=== PATIENT | male | born 1985 | race American Indian/Alaskan Native ===

== ENCOUNTER 2020-07-17 22:25 | Emergency (ER) | payer MEDICAID, SELFPAY ==
[2020-07-17 22:40] VITALS: BP 123/71; PULSE 100; RESP 17; TEMP 36.9; O2SAT 96; BMI 41.8
--- NOTE | 2020-07-17 22:44 | XR_ITS ---
EXAMINATION: XR SHOULDER, LEFT CLINICAL INFORMATION: Left shoulder pain status post work/lifting COMPARISON: None TECHNIQUE: Three views of the left shoulder. FINDINGS: No fracture or dislocation. The glenohumeral joint is well aligned. The joint space is maintained. The acromioclavicular joint is intact. The visualized lung is clear. The visualized ribs are intact. XR/XR shoulder LT min 2V IMPRESSION: No fracture or malalignment.
--- NOTE | 2020-07-17 22:46 | ED.UPPEXIN ---
HPI - Extremity Injury (Upper) General Chief Complaint: Extremity Injury, Upper Stated Complaint: SHOULDER PAIN Time Seen by Provider: 07/17/20 22:32 Source: patient Mode of arrival: ambulatory History of Present Illness HPI narrative: 34-year-old male with no significant past medical history presented to ED complaining of left shoulder pain x1 week. Reports believed injured shoulder at work and at home during lifting, denies direct trauma / falls or injury. Reports pain worse with movement. Denies numbness, tingling, weakness, CP/SOB MD complaint: injury to: left and shoulder Related Data Previous Rx's Medication Instructions Recorded acetaminophen [Tylenol Extra 500 mg PO Q6H PRN #20 tab 07/17/20 Strength] cyclobenzaprine 5 mg PO Q8H PRN 5 Days #14 tab 07/17/20 lidocaine [Lidoderm] 1 patch TOPICAL DAILY PRN #30 ea 07/17/20 MDD remove after 12 hours naproxen 500 mg PO BID PRN 10 Days #20 tab 07/17/20 Allergies Allergy/AdvReac Type Severity Reaction Status Date / Time No Known Allergies Allergy Verified 07/17/20 22:49 [No Known Allergies*] Review of Systems Review of Systems: Constitutional: No Fever, No Chills Cardiovascular: No Chest Pain Respiratory: No SO Musculoskeletal: + joint pain, No Myalgias, No Joint Swelling Skin: No Skin Lesions, No rash Neuro: No Weakness, No Numbness, No Paresthesias Yes all other systems are reviewed and are negative [facility] Past Medical History Attestation statement: The following information was validated with the patient. Medical History (Updated 07/17/20 @ 22:53 by AIDAN Lala) No known health problems Surgical History (Updated 07/17/20 @ 22:45 by Nessa Luna) H/O left knee surgery Social History Social History Alcohol intake: current Alcohol intake frequency: holidays/special occasions only Alcohol type: beer Smoking Status: Never smoker Use of substances other than those prescribed or required for medical reasons: No Advance Directives: No Physical Exam Vital Signs: Vital Signs: Vital Signs Temp Pulse Resp BP Pulse Ox 07/17/20 23:27 98.5 F 98 18 118/72 96 07/17/20 22:40 98.4 F 100 17 123/71 96 Body Mass Index 41.8 Const: General: cooperative and healthy appearing Orientation/consciousness: patient oriented x3 Limitations: no limitations HENMT: Head: Yes normal to inspection Ears: hearing grossly normal bilaterally General nose exam: Normal external nose present Face and sinus: Yes normal facial exam Eyes: General: appearance normal, both eyes and all related structures EOM: EOMs intact bilaterally Neck: Neck: Yes normal visual inspection Resp: Effort & Inspection: normal respiratory effort Cardio: Peripheral pulses: radial pulses present Skin: Rashes: no rashes Wounds: no wounds Neuro: General: patient oriented x3 Gait exam (Neuro): Normal gait present Extrem: General: Yes normal to inspection Left upper extremity: shoulder/upper arm Details: tenderness (anterior aspect shoulder) and abnormal ROM (decreased internal rotation/abduction 2/2 pain) Details: pain with active ROM; no crepitus Course Course Course Narrative: - CXR unremarkable MDM - Extremity Injury (Upper) MDM Narrative Medical decision making narrative: likely ligamental/tendon injury/ MSK pain. Low concern for fracture /dislocation plan: X-rays Discharge Plan Discharge Clinical Impression: Acute shoulder pain Qualifiers: Laterality: left Qualified Code(s): M25.512 - Pain in left shoulder Patient Disposition: Home, Self-Care Additional Instructions: your x-ray was unremarkable today in the ED Your pain is likely musculoskeletal, ligamental or tendon Flexeril is a muscle relaxer, take at night as it makes you drowsy, do not drive, drink alcohol, or operate machinery while taking it Naproxen as an anti-inflammatory / pain medication, take with food Lidoderm patches are numbing patches, apply to painful area In addition take Tylenol at home If symptoms persist or worsen, pain becomes unbearable, you developed urinary retention or incontinence, or weakness return to the ED Prescriptions: New acetaminophen [Tylenol Extra Strength] 500 mg tablet 500 mg PO Q6H PRN (Reason: pain or fever) Qty: 20 RF: 0 lidocaine [Lidoderm] 5 % adhesive patch,medicated 1 patch topical DAILY MDD remove after 12 hours PRN (Reason: pain) Qty: 30 RF: 0 naproxen 500 mg tablet 500 mg PO BID PRN (Reason: pain) 10 Days Qty: 20 RF: 0 cyclobenzaprine 5 mg tablet 5 mg PO Q8H PRN (Reason: pain (scale score 7-10)) 5 Days Qty: 14 RF: 0 Referrals: Reena Sanabria MD [Physician] - 1 week ( as needed) Physician,None [Primary Care Provider] - 5 days ( your primary care doctor) Stand Alone Forms: Work/School Release Print Language: Guatemalan
[2020-07-17 23:27] VITALS: BP 118/72; PULSE 98; RESP 18; TEMP 36.9; O2SAT 96
== END 2020-07-17 23:56 | disposition home or self-care (01) ==
PROVIDERS: Emergency Provider Internal Medicine
DX: M25.512 Pain in left shoulder (principal); Z79.899 Other long term (current) drug therapy
CPT/HCPCS: 73030; 99283; 99284

== ENCOUNTER 2021-05-01 20:40 | Emergency (ER) | payer MEDICAID, SELFPAY ==
[2021-05-01 20:54] VITALS: BP 141/88; PULSE 105; RESP 18; TEMP 36.7; O2SAT 97; BMI 44.6
--- NOTE | 2021-05-01 21:49 | ED.BACK ---
HPI - Back Pain/Injury General Chief Complaint: Back Pain/Injury Stated Complaint: Back pain Time Seen by Provider: 05/01/21 20:54 Source: patient Mode of arrival: ambulatory History of Present Illness HPI Narrative: 35-year-old male presenting to the ED complaining of acute on chronic mid/low back pain radiating down right lower extremity x a long-time. Denies new or recent trauma/fall or injury. Denies numbness, tingling, weakness, urinary incontinence/retention, fecal incontinence, fever, chills MD elicited complaint: back pain Related Data Previous Rx's Medication Instructions Recorded acetaminophen 500 mg tablet 500 mg PO Q6H PRN #20 tab 07/17/20 (Tylenol Extra Strength) cyclobenzaprine 5 mg tablet 5 mg PO Q8H PRN 5 Days #14 tab 07/17/20 lidocaine 5 % topical patch 1 patch TOPICAL DAILY PRN #30 ea 07/17/20 (Lidoderm) MDD remove after 12 hours naproxen 500 mg tablet 500 mg PO BID PRN 10 Days #20 tab 07/17/20 acetaminophen 500 mg tablet 500 mg PO Q6H PRN #20 tab 05/01/21 (Tylenol Extra Strength) cyclobenzaprine 5 mg tablet 5 mg PO Q8H PRN 5 Days #14 tab 05/01/21 lidocaine 5 % topical patch 1 patch TOPICAL DAILY PRN #30 ea 05/01/21 (Lidoderm) MDD remove after 12 hours naproxen 500 mg tablet 500 mg PO BID PRN 10 Days #20 tab 05/01/21 Allergies Allergy/AdvReac Type Severity Reaction Status Date / Time No Known Allergies Allergy Verified 07/17/20 22:49 [No Known Allergies*] Review of Systems Review of Systems: Constitutional: No Fever, No Chills Cardiovascular: No Chest Pain, No SOB Gastrointestinal: No Nausea, No Vomiting, No Abdominal pain Genitourinary: No Urinary Incontinence/retention Musculoskeletal: + joint pain, No Myalgias, No Joint Swelling Skin: No Skin Lesions, No rash Neuro: No Weakness, No Numbness, No Paresthesias Yes all other systems are reviewed and are negative Neurologic: Denies Sensory deficit (Neuro) PMFSH Past Medical History Attestation statement: The following information was validated with the patient. Medical History (Updated 05/01/21 @ 21:55 by AIDAN Lala) No known health problems Surgical History (Updated 07/17/20 @ 22:45 by Nessa Luna) H/O left knee surgery Social History Social History Alcohol intake: current Alcohol intake frequency: holidays/special occasions only Alcohol type: beer Advance Directives: No Advance Directives Information Provided: No Physical Exam Vital Signs: Vital Signs: Last Vital Signs Temp 98.1 F 05/01/21 20:54 Pulse 105 H 05/01/21 20:54 Resp 18 05/01/21 20:54 BP 141/88 H 05/01/21 20:54 Pulse Ox 97 05/01/21 20:54 Body Mass Index 44.6 Const: General: cooperative and healthy appearing Orientation/consciousness: patient oriented x3 Limitations: no limitations HENMT: Head: Yes normal to inspection Ears: hearing grossly normal bilaterally General nose exam: Normal external nose present Face and sinus: Yes normal facial exam Eyes: General: appearance normal, both eyes and all related structures EOM: EOMs intact bilaterally Neck: Neck: Yes normal visual inspection Resp: Effort & Inspection: normal respiratory effort and no respiratory distress Cardio: Rate: regular rate GI: Inspection: Yes normal to inspection Palpation (GI): Soft to palpation, nontender, no guarding and not rigid Back/Spine/Pelvis: Other: No midline cervical/thoracic or lumbar spinous tenderness. + right-sided paraspinal/MSK tenderness to palpation and right-sided MSK lumbar tenderness to palpation Skin: Rashes: no rashes Wounds: no wounds Neuro: Other: No saddle anesthesia. Strength intact throughout General: patient oriented x3, gait normal, tone normal and moves all extremities Gait exam (Neuro): Normal gait present Motor exam (neuro): 5/5 motor strength present throughout Sensory Exam: No Sensory deficit (Neuro) Extrem: General: Yes normal to inspection MDM - Back Pain/Injury MDM Narrative Medical decision making narrative: 35-year-old male presenting to the ED complaining of acute on chronic mid/low back pain radiating down right lower extremity x a long-time. On exam mildly tachycardic likely from paim, no midline spinous tenderness throughout, no red flag symptoms, no saddle anesthesia. Likely MSK pain. Low concern for cauda equina/cord compression Discharge Plan Discharge Clinical Impression: Thoracic back pain, Lumbar radiculopathy Patient Disposition: Home, Self-Care Instructions: Back Pain (ED) Additional Instructions: Your pain is likely musculoskeletal Flexeril is a muscle relaxer, take at night as it makes you drowsy, do not drive, drink alcohol, or operate machinery while taking it Naproxen as an anti-inflammatory / pain medication, take with food Lidoderm patches are numbing patches, apply to painful area In addition take Tylenol at home If symptoms persist or worsen, pain becomes unbearable, you developed urinary retention or incontinence, or weakness return to the ED Prescriptions: New acetaminophen [Tylenol Extra Strength] 500 mg tablet 500 mg PO Q6H PRN (Reason: pain or fever) Qty: 20 RF: 0 lidocaine [Lidoderm] 5 % adhesive patch,medicated 1 patch topical DAILY MDD remove after 12 hours PRN (Reason: pain) Qty: 30 RF: 0 naproxen 500 mg tablet 500 mg PO BID PRN (Reason: pain) 10 Days Qty: 20 RF: 0 cyclobenzaprine 5 mg tablet 5 mg PO Q8H PRN (Reason: pain (scale score 7-10)) 5 Days Qty: 14 RF: 0 No Action acetaminophen [Tylenol Extra Strength] 500 mg tablet 500 mg PO Q6H PRN (Reason: pain or fever) Qty: 20 RF: 0 lidocaine [Lidoderm] 5 % adhesive patch,medicated 1 patch topical DAILY MDD remove after 12 hours PRN (Reason: pain) Qty: 30 RF: 0 naproxen 500 mg tablet 500 mg PO BID PRN (Reason: pain) 10 Days Qty: 20 RF: 0 cyclobenzaprine 5 mg tablet 5 mg PO Q8H PRN (Reason: pain (scale score 7-10)) 5 Days Qty: 14 RF: 0 Referrals: Physician,None [Primary Care Provider] - 2 days Stand Alone Forms: Work/School Release
== END 2021-05-01 22:29 | disposition home or self-care (01) ==
PROVIDERS: Emergency Provider Student in an Organized Health Care Education/Training Program
DX: M54.16 Radiculopathy, lumbar region (principal); M54.6 Pain in thoracic spine
CPT/HCPCS: 99283

== ENCOUNTER 2021-10-30 11:06 | Emergency (ER) | payer MEDICAID, SELFPAY ==
[2021-10-30 11:24] VITALS: BP 131/80; PULSE 88; RESP 16; TEMP 36.6; O2SAT 97; BMI 41.8
[2021-10-30 11:41] LABS: MANUAL DIFF FLAG NO
[2021-10-30 11:42] LABS: Basophils Percent Auto 0.3 % (0-2); Eosinophils Absolute Auto 0.1 X10*3/uL (0.0-0.4); Hematocrit 44.5 % (42.0-52.0); Imm Gran Abs Auto 0.08 X10*3/uL (0.00-0.03); Imm Gran Pct Auto 0.8 % (0.0-0.4); Lymphocytes Absolute Auto 2.7 X10*3/uL (1.2-4.9); Mean Corpuscular HGB Conc 33.7 g/dl (31.0-36.0); Mean Corpuscular Hemoglobin 29.9 pg (27.0-33.0); Mean Corpuscular Volume 88.6 fL (80.0-98.0); Mean Platelet Volume 8.9 fL (9.4-12.4); Monocytes Absolute Auto 0.7 X10*3/uL (0.1-1.2); Monocytes Percent Auto 6.4 % (2-11); Neutrophils Percent Auto 66.5 % (45-73); Platelet Count 271 X10*3/uL (160-400); Red Blood Count 5.02 X10*6/uL (4.60-5.80); Red Cell Distribution Width 12.1 % (11.0-16.0); White Blood Count 10.6 X10*3/uL (4.8-10.8)
[2021-10-30 11:58] LABS: Alanine Aminotransferase 28 U/L (0-40); Albumin Level 4.1 g/dL (3.5-5.0); Alkaline Phosphatase 76 U/L (39-117); Anion Gap 10 (12-20); Aspartate Amino Transferase 20 U/L (5-37); Bilirubin Total 0.4 mg/dL (0.0-1.0); Blood Urea Nitrogen 9 mg/dL (9-16); Calcium 9.6 mg/dL (8.4-10.2); Carbon Dioxide 29 mmol/L (22-29); Chloride 101 mmol/L (96-108); Creatinine Clr Calc Pharmacy 185.6; Estimated Glomerular Filt Rate > 60; Glucose Random 227 mg/dL (60-115); Potassium 4.3 mmol/L (3.3-5.1); Sodium 136 mmol/L (135-145); Total Protein 7.4 g/dL (6.5-8.0)
[2021-10-30 12:01] LABS: Appearance Urine CLEAR; Color Urine YELLOW; Glucose Urine UA NEG (NEG); Leukocyte Esterase Urine NEG (NEG); Nitrite Urine NEG (NEG); Specific Gravity - Urine 1.025 (1.005-1.025); UACC Culture Trigger NO; Urine Blood TRACE (NEG); Urine Ketones NEG (NEG); Urine Protein NEG (NEG-TRACE)
[2021-10-30 12:20] LABS: Bacteria Urine TRACE /LPF; Mucus Urine 2+ /LPF; Squamous Epithelial Cell Urine 1+ /LPF
--- NOTE | 2021-10-30 14:09 | ED_ITS ---
HPI - Abdominal Pain General Chief Complaint: Abdominal Pain Stated Complaint: ABD PAIN Time Seen by Provider: 10/30/21 12:39 Source: patient Mode of arrival: ambulatory Limitations: no limitations History of Present Illness HPI narrative: Patient comes to the emergency room complaining of abdominal cramping and di arrhea since yesterday. Patient denies fever chills, no significant abdominal pain, no vomiting. Patient states that his has the same symptoms. Patient has no URI symptoms either. Patient states in the last 24 hours he has had 6-8 bowel movements with diarrhea. Patient has not taking any medication for diarrhea. Related Data Previous Rx's Medication Instructions Recorded acetaminophen 500 mg tablet 500 mg PO Q6H PRN #20 tab 07/17/20 (Tylenol Extra Strength) cyclobenzaprine 5 mg tablet 5 mg PO Q8H PRN 5 Days #14 tab 07/17/20 lidocaine 5 % topical patch 1 patch TOPICAL DAILY PRN #30 ea 07/17/20 (Lidoderm) MDD remove after 12 hours naproxen 500 mg tablet 500 mg PO BID PRN 10 Days #20 tab 07/17/20 acetaminophen 500 mg tablet 500 mg PO Q6H PRN #20 tab 05/01/21 (Tylenol Extra Strength) cyclobenzaprine 5 mg tablet 5 mg PO Q8H PRN 5 Days #14 tab 05/01/21 lidocaine 5 % topical patch 1 patch TOPICAL DAILY PRN #30 ea 05/01/21 (Lidoderm) MDD remove after 12 hours naproxen 500 mg tablet 500 mg PO BID PRN 10 Days #20 tab 05/01/21 loperamide 2 mg tablet 2 mg PO Q4H PRN #14 tab 10/30/21 Allergies Allergy/AdvReac Type Severity Reaction Status Date / Time No Known Allergies Allergy Verified 07/17/20 22:49 [No Known Allergies*] Review of Systems Review of Systems Constitutional : No Weight loss, No Fever, No Chills, No Night Sweats, No Fatigue, No Malaise ENT/Mouth : No Hearing loss, No Ear Pain, No Nasal Congestion, No Sinus Pain, No Hoarseness, No sore throat, No Rhinorrhea, No Swallowing Difficulty Eyes: No Eye Pain, No Swelling, No Redness, No Foreign Body, No Discharge, No Vision Changes Cardiovascular : No Chest Pain, No SOB, No Dyspnea on Exertion, No Orthopnea, No Edema, No Palpitations Respiratory : No Cough, No Sputum, No Wheezing, No Smoke Exposure, No Dyspnea Gastrointestinal : No nausea or vomiting, complaining of diarrhea, no constipation, complaining of mild abdominal cramping , no abdominal pain Genitourinary : no irregular bleeding, No Dysuria, No Urinary Frequency, No Hematuria, No Urinary Incontinence, No Urgency, No Flank Pain, No Urinary Flow Changes, No Hesitancy Musculoskeletal : No joint pain, No Myalgias, No Joint Swelling Skin : No Skin Lesions, No rash Neuro : No Weakness, No Numbness, No Paresthesias, No Loss of Consciousness, No Dizziness, No Headache Psych : No Anxiety/Panic, No Depression, No SI/HI/AH/VH, No Social Issues, Heme/Lymph: No Bruising, No Bleeding,No Lymphadenopathy Endocrine : No Polyuria, No Polydipsia, No Temperature Intolerance [facility] Past Medical History Medical History No known health problems Surgical History H/O left knee surgery Social History Social History Alcohol intake: current Alcohol intake frequency: holidays/special occasions only Alcohol type: beer Physical Exam ED Vital Signs: Vital Signs - 24 hr 10/30/21 11:24 Temperature 97.8 F Pulse Rate 88 Respiratory Rate 16 Blood Pressure 131/80 Pulse Oximetry 97 BMI result Body Mass Index 41.8 Const Other: Appearance: Alert. Oriented X3. No acute distress. Well-appearing Eyes: Pupils equal, round and reactive to light. ENT: Pharynx normal. Neck: Normal inspection. Neck supple. No lymph nodes noted. No crepitus CVS: Normal heart rate and rhythm. Pulses normal. Normal S1 and S2 Respiratory: No respiratory distress. Breath sounds normal. No Wheezing. No rales Abdomen: Soft and nontender. No rigidity. No distention Skin: Skin warm and dry. Normal skin color. Normal skin turgor. Extremities: No lower extremity edema. No Lacerations. No Rash Neuro: Oriented X 3. No motor deficit. No sensory deficit. Moving all extermities. No slurred speech. Course Course Course Narrative: Patient likely has gastroenteritis, patient is well-appearing. Patient was given the 1st dose of loperamide in the emergency room. MDM - Abdominal Pain Lab Data Result diagrams: 10/30/21 11:34 10/30/21 11:34 Labs: Lab Results 10/30/21 10/30/21 10/30/21 Range/Units 11:34 11:34 11:54 WBC 10.6 (4.8-10.8) X10*3/uL RBC 5.02 (4.60-5.80) X10*6/uL Hgb 15.0 (14.0-18.0) g/dl Hct 44.5 (42.0-52.0) % MCV 88.6 (80.0-98.0) fL MCH 29.9 (27.0-33.0) pg MCHC 33.7 (31.0-36.0) g/dl RDW 12.1 (11.0-16.0) % Plt Count 271 (160-400) X10*3/uL MPV 8.9 L (9.4-12.4) fL Immature Gran % (Auto) 0.8 H (0.0-0.4) % Neut % (Auto) 66.5 (45-73) % Lymph % (Auto) 25.0 (20-40) % [place] % (Auto) 6.4 (2-11) % Eos % (Auto) 1.0 (0-4) % Baso % (Auto) 0.3 (0-2) % Lymph # (Auto) 2.7 (1.2-4.9) X10*3/uL [place] # (Auto) 0.7 (0.1-1.2) X10*3/uL Eos # (Auto) 0.1 (0.0-0.4) X10*3/uL Baso # (Auto) 0.0 (0.0-0.2) X10*3/uL Abs Immat Gran (auto) 0.08 H (0.00-0.03) X10*3/uL Absolute Neuts (auto) 7.0 (2.0-8.3) x10*3/uL Absolute Nucleated RBC 0.000 (0.0-0.012) X10*3/uL Nucleated RBC % (auto) 0.0 (0.0-0.2) /100WBC Sodium 136 (135-145) mmol/L Potassium 4.3 (3.3-5.1) mmol/L Chloride 101 (96-108) mmol/L Carbon Dioxide 29 (22-29) mmol/L Anion Gap 10 L (12-20) BUN 9 (9-16) mg/dL Creatinine 0.76 (0.5-1.4) mg/dL Estim Creat Clear Calc 185.6 Estimated GFR > 60 Random Glucose 227 H (60-115) mg/dL Calcium 9.6 (8.4-10.2) mg/dL Total Bilirubin 0.4 (0.0-1.0) mg/dL AST 20 (5-37) U/L ALT 28 (0-40) U/L Alkaline Phosphatase 76 (39-117) U/L Total Protein 7.4 (6.5-8.0) g/dL Albumin 4.1 (3.5-5.0) g/dL Urine Color YELLOW Urine Appearance CLEAR Urine pH 6.0 (5.0-8.0) Ur Specific Fine 1.025 (1.005-1.025) Urine Protein NEG (NEG-TRACE) MG/DL Urine Glucose (UA) NEG (NEG) MG/DL Urine Ketones NEG (NEG) MG/DL Urine Blood TRACE (NEG) Urine Nitrite NEG (NEG) Ur Leukocyte Esterase NEG (NEG) Urine RBC 1-4 (0) /HPF Urine WBC 1-4 (0-4) /HPF Ur Squamous Epith Cells 1+ /LPF Urine Bacteria TRACE /LPF Urine Mucus 2+ /LPF Discharge Plan Discharge Clinical Impression: Diarrhea Patient Disposition: Home, Self-Care Instructions: Acute Diarrhea (ED) Additional Instructions: Please follow-up with your primary care physician tomorrow. If you have any worsening or new symptoms, please return to the emergency room or call 911 Prescriptions: New loperamide 2 mg tablet 2 mg PO Q4H PRN (Reason: loose stool) Qty: 14 0RF Rx Instructions: administer after each loose stool until symptoms controlled; do not exceed 8 mg per 24 hrs No Action acetaminophen [Tylenol Extra Strength] 500 mg tablet 500 mg PO Q6H PRN (Reason: pain or fever) Qty: 20 0RF lidocaine [Lidoderm] 5 % adhesive patch,medicated 1 patch topical DAILY MDD remove after 12 hours PRN (Reason: pain) Qty: 30 0RF Rx Instructions: leave on most painful area for up to 12 hrs naproxen 500 mg tablet 500 mg PO BID PRN (Reason: pain) 10 Days Qty: 20 0RF cyclobenzaprine 5 mg tablet 5 mg PO Q8H PRN (Reason: pain (scale score 7-10)) 5 Days Qty: 14 0RF acetaminophen [Tylenol Extra Strength] 500 mg tablet 500 mg PO Q6H PRN (Reason: pain or fever) Qty: 20 0RF lidocaine [Lidoderm] 5 % adhesive patch,medicated 1 patch topical DAILY MDD remove after 12 hours PRN (Reason: pain) Qty: 30 0RF Rx Instructions: leave on most painful area for up to 12 hrs naproxen 500 mg tablet 500 mg PO BID PRN (Reason: pain) 10 Days Qty: 20 0RF cyclobenzaprine 5 mg tablet 5 mg PO Q8H PRN (Reason: pain (scale score 7-10)) 5 Days Qty: 14 0RF Stand Alone Forms: Work/School Release
[2021-10-30] MEDS: Loperamide HCl 2 MG CAPSULE 4 MG PO (14:24)
== END 2021-10-30 14:34 | disposition home or self-care (01) ==
LOC: HO.ED 14:31
PROVIDERS: Emergency Provider Emergency Medicine
DX: R19.7 Diarrhea, unspecified (principal); R10.9 Unspecified abdominal pain
CPT/HCPCS: 36415; 80053; 81001; 85025; 99283

== ENCOUNTER 2021-11-12 22:13 | Emergency (ER) | payer MEDICAID, SELFPAY ==
[2021-11-12 22:47] VITALS: BP 147/81; PULSE 110; RESP 16; TEMP 37.1; O2SAT 97; BMI 41.8
--- NOTE | 2021-11-12 22:54 | ED.GENADULT ---
HPI - General Adult General Chief complaint: General Medical Stated complaint: flu like symptoms Source: patient Mode of arrival: ambulatory Limitations: no limitations History of Present Illness HPI narrative: 36-year-old male presents with 2 days of upper respiratory symptoms, congestion, sore throat, pain when swallowing and cough. Patient requesting COVID-19 testing. Onset (ago): day(s) (2) Location: head Radiation: non-radiation Severity: moderate Severity scale (1-10): 6 Quality: aching Pain Consistency: constant Relieving factors: none Exacerbating factors: eating Associated symptoms: denies other symptoms Treatments prior to arrival: none Related Data Previous Rx's Medication Instructions Recorded acetaminophen 500 mg tablet 500 mg PO Q6H PRN #20 tab 07/17/20 (Tylenol Extra Strength) cyclobenzaprine 5 mg tablet 5 mg PO Q8H PRN 5 Days #14 tab 07/17/20 lidocaine 5 % topical patch 1 patch TOPICAL DAILY PRN #30 ea 07/17/20 (Lidoderm) MDD remove after 12 hours naproxen 500 mg tablet 500 mg PO BID PRN 10 Days #20 tab 07/17/20 acetaminophen 500 mg tablet 500 mg PO Q6H PRN #20 tab 05/01/21 (Tylenol Extra Strength) cyclobenzaprine 5 mg tablet 5 mg PO Q8H PRN 5 Days #14 tab 05/01/21 lidocaine 5 % topical patch 1 patch TOPICAL DAILY PRN #30 ea 05/01/21 (Lidoderm) MDD remove after 12 hours naproxen 500 mg tablet 500 mg PO BID PRN 10 Days #20 tab 05/01/21 loperamide 2 mg tablet 2 mg PO Q4H PRN #14 tab 10/30/21 amoxicillin 875 mg-potassium 1 tab PO Q12H 10 Days #20 tab 11/12/21 clavulanate 125 mg tablet Allergies Allergy/AdvReac Type Severity Reaction Status Date / Time No Known Allergies Allergy Verified 07/17/20 22:49 [No Known Allergies*] Review of Systems Review of Systems: Constitutional: No Fever, No Chills ENT/Mouth: No Ear Pain, No Hoarseness, positive sore throat Eyes: No Eye Pain, No Swelling, No Redness, No Foreign Body Cardiovascular: No Chest Pain, No SOB Respiratory: Positive Cough, No Dyspnea Gastrointestinal: No Nausea, No Vomiting, No Diarrhea, No abdominal Pain Genitourinary: No Dysuria, No Hematuria Musculoskeletal: No joint pain, No Myalgias, No Joint Swelling Skin: No Skin lacerations, No rash Neuro: No Weakness, No Numbness, No Paresthesias, No Loss of Consciousness, No Dizziness, No Headache Psych: No Anxiety/Panic, No Depression Heme/Lymph: no easy bruising, no Lymphadenopathy Endocrine: No Polyuria, No Polydipsia Yes all other systems are reviewed and are negative [facility] Past Medical History Medical History No known health problems Surgical History H/O left knee surgery Social History Social History Alcohol intake: current Alcohol intake frequency: holidays/special occasions only Alcohol type: beer Advance Directives: No Advance Directives Information Provided: No Physical Exam ED Vital Signs: Vital Signs - 24 hr 11/12/21 22:47 Temperature 98.7 F Pulse Rate 110 H Respiratory Rate 16 Blood Pressure 147/81 H Pulse Oximetry 97 BMI result Body Mass Index 41.8 Appearance: Alert. Oriented X3. No acute distress. Eyes: Pupils equal, round and reactive to light. ENT: Pharynx erythematous with enlarged tonsils with bilateral exudates. No cervical lymphadenopathy noted. Neck: Normal inspection. Neck supple. CVS: Normal heart rate and rhythm. Pulses normal. Respiratory: No respiratory distress. Breath sounds normal. Abdomen: Soft and nontender. Skin: Skin warm and dry. Normal skin color. Normal skin turgor. Extremities: No lower extremity edema. Gait well-balanced well coordinated. Neuro: No motor deficit. No sensory deficit. Cranial nerves 2-12 intact. Course Course Course Narrative: 36-year-old male presents with upper respiratory symptoms. Physical exam is consistent with strep pharyngitis. Will treat with Augmentin and Motrin. netsuite developer utilized for all correspondence. Google translate utilized for discharge instructions.Patient verbalized understanding of and agrees to plan of care discharge home. Verbalized understanding of signs and symptoms indicating need for emergent intervention Medical Decision Making Differential Diagnosis Differential Diagnosis: Pharyngitis, viral syndrome Medical Records Medical records reviewed: Yes I reviewed the patient's medical records. Lab Data Lab results reviewed: Yes I reviewed the patient's lab results. Discharge Plan Discharge Clinical Impression: Acute streptococcal pharyngitis Patient Disposition: Home, Self-Care Instructions: Strep Throat (ED) Additional Instructions: Usted fue evaluado por s?ntomas de las v?as respiratorias superiores. El examen f?sico indica faringitis estreptoc?cica. [place] Augmentin 875 mg dos veces al d?a yanira los pr?ximos 10 d?as. Use Motrin 600 mg cada 6 horas seg?n sea necesario para controlar el dolor. [place] Tylenol 650 mg cada 6 horas seg?n sea necesario para controlar el dolor. Por favor, anote a qu? hora monika los medicamentos para evitar duke sobredosis accidental. Seguimiento con m?dico de atenci?n primaria. Otilia por elegir victor m departamento de emergencias para coello evaluaci?n. Por favor, jose miguel un seguimiento con el m?dico de atenci?n primaria seg?n sea necesario. Regrese al departamento de emergencias por cualquier s?ntoma nuevo, preocupante o que empeore. You were evaluated for upper respiratory symptoms. Physical examination indicates strep pharyngitis. Please take Augmentin 875 mg twice a day for the next 10 days. Use Motrin 600 mg every 6 hours as needed for pain management. Take Tylenol 650 mg every 6 hours as needed for pain management. Please write down what time he takes medications prevent accidental overdose. Follow-up with primary care physician. Thank you for choosing this emergency department for evaluation. Please follow-up with primary care physician as needed. Return to the emergency department for any new, concerning, or worsening symptoms. Prescriptions: New amoxicillin-pot clavulanate 875-125 mg tablet 1 tab PO Q12H 10 Days Qty: 20 0RF No Action acetaminophen [Tylenol Extra Strength] 500 mg tablet 500 mg PO Q6H PRN (Reason: pain or fever) Qty: 20 0RF lidocaine [Lidoderm] 5 % adhesive patch,medicated 1 patch topical DAILY MDD remove after 12 hours PRN (Reason: pain) Qty: 30 0RF Rx Instructions: leave on most painful area for up to 12 hrs naproxen 500 mg tablet 500 mg PO BID PRN (Reason: pain) 10 Days Qty: 20 0RF cyclobenzaprine 5 mg tablet 5 mg PO Q8H PRN (Reason: pain (scale score 7-10)) 5 Days Qty: 14 0RF acetaminophen [Tylenol Extra Strength] 500 mg tablet 500 mg PO Q6H PRN (Reason: pain or fever) Qty: 20 0RF lidocaine [Lidoderm] 5 % adhesive patch,medicated 1 patch topical DAILY MDD remove after 12 hours PRN (Reason: pain) Qty: 30 0RF Rx Instructions: leave on most painful area for up to 12 hrs naproxen 500 mg tablet 500 mg PO BID PRN (Reason: pain) 10 Days Qty: 20 0RF cyclobenzaprine 5 mg tablet 5 mg PO Q8H PRN (Reason: pain (scale score 7-10)) 5 Days Qty: 14 0RF loperamide 2 mg tablet 2 mg PO Q4H PRN (Reason: loose stool) Qty: 14 0RF Rx Instructions: administer after each loose stool until symptoms controlled; do not exceed 8 mg per 24 hrs Stand Alone Forms: Work/School Release
[2021-11-13 00:08] LABS: Strep A Nucleic Acid Positive (Negative)
[2021-11-13 00:14] LABS: COVID-19 Test Negative (Negative); IDNOW Serial# 55D5AD1C
[2021-11-13] MEDS: Ibuprofen 600 MG TABLET PO (00:35)
[2021-11-13] MEDS: Amoxicillin/Potassium Clav 875 MG TABLET PO (00:36)
== END 2021-11-13 01:09 | disposition home or self-care (01) ==
PROVIDERS: Nurse Practitioner Family; Emergency Provider Emergency Medicine
DX: J02.0 Streptococcal pharyngitis (principal); R50.9 Fever, unspecified; R05.9 Cough, unspecified; Z20.822 Contact with and (suspected) exposure to COVID-19; Z79.899 Other long term (current) drug therapy
CPT/HCPCS: 87635; 87651; 99284

== ENCOUNTER 2022-06-25 22:12 | Emergency (ER) | payer MEDICAID, SELFPAY ==
[2022-06-25 22:40] VITALS: BP 130/73; PULSE 97; RESP 22; TEMP 37.2; O2SAT 96; BMI 41.8
[2022-06-25 23:07] LABS: COVID-19 Test Negative (Negative)
--- NOTE | 2022-06-26 01:36 | ED.GENADULT ---
HPI - General Adult General Chief complaint: General Medical Stated complaint: Flu like symptoms Time Seen by Provider: 06/26/22 01:17 History of Present Illness HPI narrative: Patient is a 36-year-old male presents today with having some congestion. Upper respiratory symptoms. Patient had an exposure to COVID on Saturday. Decided come to ED for further evaluation. No coughing. Minimal congestion. No fever. Patient from home. Patient vaccinated for COVID x2 not boosted Related Data Previous Rx's Medication Instructions Recorded acetaminophen 500 mg tablet 500 mg PO Q6H PRN pain or fever 07/17/20 (Tylenol Extra Strength) #20 tabs cyclobenzaprine 5 mg tablet 5 mg PO Q8H PRN pain (scale score 07/17/20 7-10) 5 days #14 tabs lidocaine 5 % topical patch 1 patch topical DAILY PRN pain #30 07/17/20 (Lidoderm) ea naproxen 500 mg tablet 500 mg PO BID PRN pain 10 days #20 07/17/20 tabs acetaminophen 500 mg tablet 500 mg PO Q6H PRN pain or fever 05/01/21 (Tylenol Extra Strength) #20 tabs cyclobenzaprine 5 mg tablet 5 mg PO Q8H PRN pain (scale score 05/01/21 7-10) 5 days #14 tabs lidocaine 5 % topical patch 1 patch topical DAILY PRN pain #30 05/01/21 (Lidoderm) ea naproxen 500 mg tablet 500 mg PO BID PRN pain 10 days #20 05/01/21 tabs loperamide 2 mg tablet 2 mg PO Q4H PRN loose stool #14 10/30/21 tabs amoxicillin 875 mg-potassium 1 tab PO Q12H 10 days #20 tabs 11/12/21 clavulanate 125 mg tablet Allergies Allergy/AdvReac Type Severity Reaction Status Date / Time No Known Allergies Allergy Verified 07/17/20 22:49 [No Known Allergies*] Review of Systems Review of Systems: Positive congestion Yes all other systems are reviewed and are negative PMFSH Past Medical History Attestation statement: The following information was validated with the patient. Medical History No known health problems Surgical History H/O left knee surgery Social History Social History Alcohol intake: current Alcohol intake frequency: holidays/special occasions only Alcohol type: beer Advance Directives: No Physical Exam ED Vital Signs: Vital Signs - 24 hr 06/25/22 22:40 Temperature 99.0 F Pulse Rate 97 Respiratory Rate 22 H Blood Pressure 130/73 Pulse Oximetry 96 Oxygen Delivery Method Room Air BMI result Body Mass Index 41.8 Appearance: Alert. Oriented X3. No acute distress. Eyes: Pupils equal, round and reactive to light. ENT: Pharynx normal. Neck: Normal inspection. Neck supple. No lymph nodes noted. No crepitus CVS: Normal heart rate and rhythm. Pulses normal. Normal S1 and S2 Respiratory: No respiratory distress. Breath sounds normal. No Wheezing. No rales Abdomen: Soft and nontender. No rigidity. No distention. good BS x4 Skin: Skin warm and dry. Normal skin color. Normal skin turgor. Extremities: No lower extremity edema. Neurovascular intact to all extremities. No Lacerations. No Rash Neuro: Oriented X 3. No motor deficit. No sensory deficit. Moving all extermities. No slurred speech Medical Decision Making MDM Narrative Medical decision making narrative: Well-appearing no acute distress. Patient's O2 sats 96% on room air. Lungs are clear. COVID test is negative. Will discharge patient home close follow-up on an outpatient basis. Explained to patient the COVID test may not have turned positive get. Will need repeat testing if symptoms persist. Lab Data Lab results reviewed: Yes I reviewed the patient's lab results. Labs: Lab Results 06/25/22 Range/Units 22:45 COVID-19 (CINDY) Negative (Negative) COVID-19 Clin Com See Note Discharge Plan Discharge Clinical Impression: Upper respiratory infection Patient Disposition: Home, Self-Care Instructions: Upper Respiratory Infection (ED) Additional Instructions: Your COVID test today was negative. Prescriptions: No Action acetaminophen [Tylenol Extra Strength] 500 mg tablet 500 mg PO Q6H PRN (Reason: pain or fever) Qty: 20 0RF lidocaine [Lidoderm] 5 % adhesive patch,medicated 1 patch topical DAILY MDD remove after 12 hours PRN (Reason: pain) Qty: 30 0RF Rx Instructions: leave on most painful area for up to 12 hrs naproxen 500 mg tablet 500 mg PO BID PRN (Reason: pain) 10 Days Qty: 20 0RF cyclobenzaprine 5 mg tablet 5 mg PO Q8H PRN (Reason: pain (scale score 7-10)) 5 Days Qty: 14 0RF acetaminophen [Tylenol Extra Strength] 500 mg tablet 500 mg PO Q6H PRN (Reason: pain or fever) Qty: 20 0RF lidocaine [Lidoderm] 5 % adhesive patch,medicated 1 patch topical DAILY MDD remove after 12 hours PRN (Reason: pain) Qty: 30 0RF Rx Instructions: leave on most painful area for up to 12 hrs naproxen 500 mg tablet 500 mg PO BID PRN (Reason: pain) 10 Days Qty: 20 0RF cyclobenzaprine 5 mg tablet 5 mg PO Q8H PRN (Reason: pain (scale score 7-10)) 5 Days Qty: 14 0RF loperamide 2 mg tablet 2 mg PO Q4H PRN (Reason: loose stool) Qty: 14 0RF Rx Instructions: administer after each loose stool until symptoms controlled; do not exceed 8 mg per 24 hrs amoxicillin-pot clavulanate 875-125 mg tablet 1 tab PO Q12H 10 Days Qty: 20 0RF Referrals: Physician,Unknown J [Primary Care Provider] - Print Language: Bhutanese
== END 2022-06-26 01:50 | disposition home or self-care (01) ==
PROVIDERS: Emergency Provider Emergency Medicine Emergency Medical Services
DX: J06.9 Acute upper respiratory infection, unspecified (principal); R09.89 Other specified symptoms and signs involving the circulatory and respiratory systems; Z20.822 Contact with and (suspected) exposure to COVID-19
CPT/HCPCS: 87635; 99282; 99283

== ENCOUNTER 2022-10-11 16:27 | Emergency (ER) | payer MEDICAID, SELFPAY ==
[2022-10-11 16:45] VITALS: BP 140/95; PULSE 121; RESP 18; TEMP 36.5; O2SAT 95; BMI 41.8
--- NOTE | 2022-10-11 17:19 | ED.SKABFB ---
HPI - Skin/Abscess/Foreign Bdy General Chief complaint: Skin/Abscess/Foreign Body Stated complaint: cyst on buttock Time Seen by Provider: 10/11/22 19:21 Related Data Previous Rx's Medication Instructions Recorded acetaminophen 500 mg tablet 500 mg PO Q6H PRN pain or fever 07/17/20 (Tylenol Extra Strength) #20 tabs cyclobenzaprine 5 mg tablet 5 mg PO Q8H PRN pain (scale score 07/17/20 7-10) 5 days #14 tabs lidocaine 5 % topical patch 1 patch topical DAILY PRN pain #30 07/17/20 (Lidoderm) ea naproxen 500 mg tablet 500 mg PO BID PRN pain 10 days #20 07/17/20 tabs acetaminophen 500 mg tablet 500 mg PO Q6H PRN pain or fever 05/01/21 (Tylenol Extra Strength) #20 tabs cyclobenzaprine 5 mg tablet 5 mg PO Q8H PRN pain (scale score 05/01/21 7-10) 5 days #14 tabs lidocaine 5 % topical patch 1 patch topical DAILY PRN pain #30 05/01/21 (Lidoderm) ea naproxen 500 mg tablet 500 mg PO BID PRN pain 10 days #20 05/01/21 tabs loperamide 2 mg tablet 2 mg PO Q4H PRN loose stool #14 10/30/21 tabs amoxicillin 875 mg-potassium 1 tab PO Q12H 10 days #20 tabs 11/12/21 clavulanate 125 mg tablet cephalexin 500 mg tablet 500 mg PO Q6H 10 days #40 tabs 10/11/22 Allergies Allergy/AdvReac Type Severity Reaction Status Date / Time No Known Allergies Allergy Verified 07/17/20 22:49 [No Known Allergies*] [facility] Past Medical History Medical History No known health problems Surgical History H/O left knee surgery Social History Social History Alcohol intake: current Alcohol intake frequency: holidays/special occasions only Alcohol type: beer Physical Exam Vital Signs: Vital Signs: Last Vital Signs Temp 97.7 F 10/11/22 16:45 Pulse 110 H 10/11/22 19:42 Resp 20 10/11/22 19:42 BP 126/83 10/11/22 19:42 Pulse Ox 95 10/11/22 19:42 O2 Del Method 10/11/22 19:42 BMI result Body Mass Index 41.8 Course Course Course Narrative: This is rapid medical exam. Deferred additional HPI, ROS, PE to primary provider. 37-year-old male with history of obesity here with 3 days of abscess to the buttocks/scrotal area. Unable to visualize in triage. Vital signs stable. Medications Administered Discontinued Medications Generic Name Dose Route Start Last Admin Trade Name Freq PRN Reason Stop Dose Admin Diphtheria/Tetanus/Acell Pertussis 0.5 ml 10/11/22 20:03 10/11/22 20:50 Diphth,Pertus(Acell),Tet Adult 0.5 Ml Syringe IM 10/11/22 20:04 0.5 ml .ONCE ONE Administration Lidocaine HCl 2 ml 10/11/22 20:03 10/11/22 20:50 Lidocaine Hcl 1 % Mpf 5 Ml Vial SUBCUT 10/11/22 20:04 2 ml ONCE ONE Administration Lidocaine HCl 2 ml 10/11/22 20:03 10/11/22 20:50 Lidocaine Hcl 1 % Mpf 5 Ml Vial SUBCUT 10/11/22 20:04 2 ml ONCE ONE Administration Lidocaine HCl 2 ml 10/11/22 20:03 10/11/22 20:50 Lidocaine Hcl 1 % Mpf 5 Ml Vial SUBCUT 10/11/22 20:04 2 ml ONCE ONE Administration Discharge Plan Discharge Clinical Impression: Cellulitis, Abscess of skin or subcutaneous tissue Patient Disposition: Home, Self-Care Instructions: Abscess (ED), Abscess Follow-up (ED) Additional Instructions: Take your medications as prescribed. If you were prescribed antibiotics today, it is important that you take your medication to their entirety, do not skip any doses, do not finish them early. Follow-up with your primary care provider this week. Return to the emergency department with new or worsening symptoms. Such as fevers, chills, chest pain, shortness of breath, nausea, vomiting, dizziness, headache, vision changes, lethargy In case of emergency call 911 Apply warm compresses to the area. Zihlman linda medicamentos seg?n lo prescrito. Si le recetaron antibi?ticos hoy, es importante que tome coello medicamento en coello totalidad, no se salte ninguna dosis, no los termine antes de tiempo. Seguimiento con coello proveedor de atenci?n primaria esta semana. Regrese al departamento de emergencias con s?ntomas nuevos o que empeoran. Jeyson fiebre, escalofr?os, dolor de pecho, dificultad para respirar, n?useas, v?mitos, mareos, dolor de hellen, cambios en la visi?n, letargo En andres de emergencia llama al 911 Aplicar compresas tibias en la ankit. Seguimiento con cirug?a general. Prescriptions: New cephalexin 500 mg tablet 500 mg PO Q6H 10 Days Qty: 40 0RF No Action acetaminophen [Tylenol Extra Strength] 500 mg tablet 500 mg PO Q6H PRN (Reason: pain or fever) Qty: 20 0RF lidocaine [Lidoderm] 5 % adhesive patch,medicated 1 patch topical DAILY MDD remove after 12 hours PRN (Reason: pain) Qty: 30 0RF Rx Instructions: leave on most painful area for up to 12 hrs naproxen 500 mg tablet 500 mg PO BID PRN (Reason: pain) 10 Days Qty: 20 0RF cyclobenzaprine 5 mg tablet 5 mg PO Q8H PRN (Reason: pain (scale score 7-10)) 5 Days Qty: 14 0RF acetaminophen [Tylenol Extra Strength] 500 mg tablet 500 mg PO Q6H PRN (Reason: pain or fever) Qty: 20 0RF lidocaine [Lidoderm] 5 % adhesive patch,medicated 1 patch topical DAILY MDD remove after 12 hours PRN (Reason: pain) Qty: 30 0RF Rx Instructions: leave on most painful area for up to 12 hrs naproxen 500 mg tablet 500 mg PO BID PRN (Reason: pain) 10 Days Qty: 20 0RF cyclobenzaprine 5 mg tablet 5 mg PO Q8H PRN (Reason: pain (scale score 7-10)) 5 Days Qty: 14 0RF loperamide 2 mg tablet 2 mg PO Q4H PRN (Reason: loose stool) Qty: 14 0RF Rx Instructions: administer after each loose stool until symptoms controlled; do not exceed 8 mg per 24 hrs amoxicillin-pot clavulanate 875-125 mg tablet 1 tab PO Q12H 10 Days Qty: 20 0RF Referrals: [facility] [Provider Group] - 2 days [facility] [Primary Care Provider] - 2 days Renita King [Emergency Nurse] - 2 days Stand Alone Forms: Work/School Release Interventions: ED Discharge Assessment Last Done: 10/11/22 21:05 Discharge Date/Time: 10/11/22 21:06
--- NOTE | 2022-10-11 19:35 | PC.NURSE ---
Assumed care of pt. at 1900. Pt. resting in bed lying on his left side. Pt. reporting pain in the middle of his buttocks. Pending provider. No distress noted. Will continue to monitor.
[2022-10-11 19:42] VITALS: BP 126/83; PULSE 110; RESP 20; O2SAT 95
--- NOTE | 2022-10-11 20:09 | ED_ITS ---
HPI - Skin/Abscess/Foreign Bdy General Chief complaint: Skin/Abscess/Foreign Body Stated complaint: cyst on buttock Time Seen by Provider: 10/11/22 19:21 Source: patient Mode of arrival: ambulatory Limitations: no limitations History of Present Illness HPI narrative: This is a 37-year-old male presenting with an abscess to his left buttocks x3 days. Patient tells me that he is having significant discomfort to the area. He tells me he thinks the area is warm to the touch and tender. This is never happened to him before. Reports it is progressively worsening. Denies numbness, tingling, fevers, chills, chest pain, shortness of breath, nausea, vomiting, headache, vision changes, dizziness or weakness. Patient is not up-to-date on a tetanus shot. Related Data Previous Rx's Medication Instructions Recorded acetaminophen 500 mg tablet 500 mg PO Q6H PRN pain or fever 07/17/20 (Tylenol Extra Strength) #20 tabs cyclobenzaprine 5 mg tablet 5 mg PO Q8H PRN pain (scale score 07/17/20 7-10) 5 days #14 tabs lidocaine 5 % topical patch 1 patch topical DAILY PRN pain #30 07/17/20 (Lidoderm) ea naproxen 500 mg tablet 500 mg PO BID PRN pain 10 days #20 07/17/20 tabs acetaminophen 500 mg tablet 500 mg PO Q6H PRN pain or fever 05/01/21 (Tylenol Extra Strength) #20 tabs cyclobenzaprine 5 mg tablet 5 mg PO Q8H PRN pain (scale score 05/01/21 7-10) 5 days #14 tabs lidocaine 5 % topical patch 1 patch topical DAILY PRN pain #30 05/01/21 (Lidoderm) ea naproxen 500 mg tablet 500 mg PO BID PRN pain 10 days #20 05/01/21 tabs loperamide 2 mg tablet 2 mg PO Q4H PRN loose stool #14 10/30/21 tabs amoxicillin 875 mg-potassium 1 tab PO Q12H 10 days #20 tabs 11/12/21 clavulanate 125 mg tablet cephalexin 500 mg tablet 500 mg PO Q6H 10 days #40 tabs 10/11/22 Allergies Allergy/AdvReac Type Severity Reaction Status Date / Time No Known Allergies Allergy Verified 07/17/20 22:49 [No Known Allergies*] Review of Systems Review of Systems: Constitutional : No Fever, No Chills, Cardiovascular : No Chest Pain, No SOB Respiratory : No Dyspnea Gastrointestinal : No abdominal pain Musculoskeletal : No Joint Swelling Skin : No rash, No skin laceration, + abscess Neuro : No Weakness, No Numbness Psych : No SI/HI Yes all other systems are reviewed and are negative PMFSH Past Medical History Attestation statement: The following information was validated with the patient. Source: old records reviewed and nursing notes reviewed Medical History No known health problems Surgical History H/O left knee surgery Social History Social History Alcohol intake: current Alcohol intake frequency: holidays/special occasions only Alcohol type: beer Advance Directives: No Advance Directives Information Provided: Yes Physical Exam Vital Signs: Vital Signs: Last Vital Signs Temp 97.7 F 10/11/22 16:45 Pulse 110 H 10/11/22 19:42 Resp 20 10/11/22 19:42 BP 126/83 10/11/22 19:42 Pulse Ox 95 10/11/22 19:42 O2 Del Method 10/11/22 19:42 BMI result Body Mass Index 41.8 vss Appearance: Alert.? Oriented X3.? No acute distress.? Head: Normocephalic, atraumatic, no step-offs or deformities Eyes: Pupils equal, round and reactive to light.? CVS: Normal heart rate and rhythm.? Pulses normal.? Respiratory: No respiratory distress.? Breath sounds normal.? Abdomen: Soft and nontender.? Skin: Skin warm and dry.? Normal skin color.? Normal skin turgor.?+ small 2 cm X2 cm abscess to the left in her butt cheek with fluctuance. Extremities: No lower extremity edema.? No calf ttp. 5/5 strength to bilateral upper and lower extremities Neuro: Oriented X 3.? No motor deficit.? No sensory deficit. CN 2-12 intact Course Reevaluation(s) Reevaluation #1: 5 cc of purulent fluid expressed w/ I&D ( Chetan PCT at bedside) , patient tollerated procedure welll. Patient will be dc home on keflex. Tetanus shot given. Educated patient on diagnosis and treatment plan, answered all question, patient verbalizes understanding. At this time patient will be discharged home, advised to return with new or worsening symptoms. Educated on worrisome signs and symptoms and when to return. At this time I feel comfortable discharge home. Time: 20:13 Medical Decision Making Medical Decision Making [facility] Narrative: 2001 37 year old male presents w/ abscess to buttocks x3 days Physical exam significant for small 2 cm X2 cm abscess to the left in her butt cheek with fluctuance. Likely abscess unlikely necrotizing infection, no signs of crepitus, no signs of gangrene, unlikley osteomyltis Will do I &D Differential Diagnosis Differential Diagnoses: The differential diagnosis associated with the presentation includes Likely abscess unlikely necrotizing infection, no signs of crepitus, no signs of gangrene, unlikley osteomyltis Admission/Observation Consideration of admission/observation: Escalation of care including admission/observation considered Core Measures AMI core measures followed: Yes Measure exclusions: not indicated Critical Care Time Critical Care Time Critical Care Time: No Discharge Plan Discharge Clinical Impression: Cellulitis, Abscess of skin or subcutaneous tissue Patient Disposition: Home, Self-Care Additional Instructions: Take your medications as prescribed. If you were prescribed antibiotics today, it is important that you take your medication to their entirety, do not skip any doses, do not finish them early. Follow-up with your primary care provider this week. Return to the emergency department with new or worsening symptoms. Such as fevers, chills, chest pain, shortness of breath, nausea, vomiting, dizziness, headache, vision changes, lethargy In case of emergency call 911 Apply warm compresses to the area. Jobos linda medicamentos seg?n lo prescrito. Si le recetaron antibi?ticos hoy, es importante que tome coello medicamento en coello totalidad, no se salte ninguna dosis, no los termine antes de tiempo. Seguimiento con coello proveedor de atenci?n primaria esta semana. Regrese al departamento de emergencias con s?ntomas nuevos o que empeoran. Jeyson fiebre, escalofr?os, dolor de pecho, dificultad para respirar, n?useas, v?mitos, mareos, dolor de hellen, cambios en la visi?n, letargo En andres de emergencia llama al 911 Aplicar compresas tibias en la ankit. Prescriptions: New cephalexin 500 mg tablet 500 mg PO Q6H 10 Days Qty: 40 0RF No Action acetaminophen [Tylenol Extra Strength] 500 mg tablet 500 mg PO Q6H PRN (Reason: pain or fever) Qty: 20 0RF lidocaine [Lidoderm] 5 % adhesive patch,medicated 1 patch topical DAILY MDD remove after 12 hours PRN (Reason: pain) Qty: 30 0RF Rx Instructions: leave on most painful area for up to 12 hrs naproxen 500 mg tablet 500 mg PO BID PRN (Reason: pain) 10 Days Qty: 20 0RF cyclobenzaprine 5 mg tablet 5 mg PO Q8H PRN (Reason: pain (scale score 7-10)) 5 Days Qty: 14 0RF acetaminophen [Tylenol Extra Strength] 500 mg tablet 500 mg PO Q6H PRN (Reason: pain or fever) Qty: 20 0RF lidocaine [Lidoderm] 5 % adhesive patch,medicated 1 patch topical DAILY MDD remove after 12 hours PRN (Reason: pain) Qty: 30 0RF Rx Instructions: leave on most painful area for up to 12 hrs naproxen 500 mg tablet 500 mg PO BID PRN (Reason: pain) 10 Days Qty: 20 0RF cyclobenzaprine 5 mg tablet 5 mg PO Q8H PRN (Reason: pain (scale score 7-10)) 5 Days Qty: 14 0RF loperamide 2 mg tablet 2 mg PO Q4H PRN (Reason: loose stool) Qty: 14 0RF Rx Instructions: administer after each loose stool until symptoms controlled; do not exceed 8 mg per 24 hrs amoxicillin-pot clavulanate 875-125 mg tablet 1 tab PO Q12H 10 Days Qty: 20 0RF Referrals: [facility] [Primary Care Provider] - 2 days Renita King [Emergency Nurse] - 2 days Stand Alone Forms: Work/School Release
[2022-10-11] MEDS: Lidocaine HCl 1 % MPF 5 ML VIAL 2 ML SUBCUT ×3 (20:50)
[2022-10-11] MEDS: Diphth,Pertus(ACell),Tet Adult 0.5 ML SYRINGE IM (20:50)
== END 2022-10-11 21:06 | disposition home or self-care (01) ==
PROVIDERS: Emergency Provider Emergency Medicine
DX: S30.810A Abrasion of lower back and pelvis, initial encounter (principal); L03.317 Cellulitis of buttock; X58.XXXA Exposure to other specified factors, initial encounter; Y93.9 Activity, unspecified; Y92.9 Unspecified place or not applicable; Y99.9 Unspecified external cause status; Z23 Encounter for immunization
CPT/HCPCS: 10060; 90471; 90715; 99284

== ENCOUNTER → 2022-10-15 15:31 | Outpatient (BNVA) | payer MEDICAID, SELFPAY | PROVIDERS: Visit Provider Surgery | DX: L72.9 Follicular cyst of the skin and subcutaneous tissue, unspecified (principal) | CPT/HCPCS: 99202 ==

== ENCOUNTER 2023-06-11 11:48 | Emergency (ER) | payer MEDICAID, SELFPAY ==
--- NOTE | ~2023-06-11 | CT_ITS ---
EXAMINATION: CT ABDOMEN AND PELVIS WITH CONTRAST CLINICAL INFORMATION: Left lower quadrant abdominal pain and diarrhea COMPARISON: None available. TECHNIQUE: Multidetector volumetric images were obtained from the superior aspect of the liver through the pubic symphysis following administration 85 mL of Omnipaque 350 intravenous contrast. Sagittal and coronal reformatted images were obtained on the technologist's workstation. Oral contrast: No This CT examination was performed using dose optimization techniques as appropriate, variously including the following: *Automated exposure control *Adjustment of mA and/or kV according to patient size (this includes techniques or standardized protocols for targeted exams where dose is matched to indication/reason for exam; i.e. extremities or head) *Use of iterative reconstruction technique DLP: 994 mGy-cm FINDINGS: LUNG BASES: The lung bases are clear. The heart size is normal. LIVER, GALLBLADDER, AND BILIARY TREE: The liver is normal in size, shape, and diffuse hypoattenuation. There is a 3 mm calcification in inferior right hepatic lobe. No intrahepatic ductal dilatation seen.. The gallbladder is unremarkable with no evidence of radiopaque gallstones, gallbladder wall thickening, or obvious pericholecystic inflammatory changes. PANCREAS: Unremarkable. SPLEEN: Unremarkable. ADRENAL GLANDS: Unremarkable. KIDNEYS AND URETERS: The kidneys are normal in size, shape, and attenuation. No hydronephrosis, hydroureter, or calculi seen. No perinephric stranding. BLADDER: Unremarkable. GASTROINTESTINAL TRACT: There is scattered stool and gas seen throughout the colon without any significant distention. The small bowel loops are normal caliber. Appendix is normal caliber there is no inflammatory process, free air or free fluid. The stomach is nondistended. ABDOMINAL WALL: No significant hernia is appreciated. LYMPH NODES: Shotty lymph nodes seen in the retroperitoneum. VASCULAR: Unremarkable. PELVIC VISCERA: The prostate gland is normal size with central gland calcification. OSSEOUS STRUCTURES: No aggressive lytic or sclerotic process seen. CT/CT abdomen pelvis w IV con IMPRESSION: 1. No acute intra-abdominal process seen. 2. Mild hepatic steatosis. Fleischner guidelines were followed.
[2023-06-11 11:58] VITALS: BP 130/85; PULSE 90; RESP 18; TEMP 36.9; O2SAT 99; BMI 41.1
--- NOTE | 2023-06-11 11:59 | ED_ITS ---
HPI - General Adult General Chief complaint: Abdominal Pain Stated complaint: Abd pain Time Seen by Provider: 06/11/23 14:53 Source: patient, RN notes reviewed and old records reviewed Mode of arrival: ambulatory History of Present Illness HPI narrative: 37-year-old male with a past medical history of obesity presenting to the ED complaining of generalized/lower abdominal pain and nonbloody diarrhea since yesterday s/p eating chicken he made at home. Denies fever/chills, nausea/vomiting, dysuria/hematuria, recent travel Onset (ago): day(s) Related Data Home Medications Medication Instructions Recorded Confirmed cyclobenzaprine 5 mg tablet 5 mg PO Q8H PRN pain (scale score 10/15/22 7-10) Previous Rx's Medication Instructions Recorded acetaminophen 500 mg tablet 500 mg PO Q6H PRN pain or fever 07/17/20 (Tylenol Extra Strength) #20 tabs acetaminophen 500 mg tablet 500 mg PO Q6H PRN pain or fever 05/01/21 (Tylenol Extra Strength) #20 tabs cephalexin 500 mg tablet 500 mg PO Q6H 10 days #40 tabs 10/11/22 Allergies Allergy/AdvReac Type Severity Reaction Status Date / Time No Known Allergies Allergy Verified 10/15/22 15:43 [No Known Allergies*] Review of Systems 2 Review of Systems: Constitutional: No Fever, No Chills, No Fatigue, No Malaise ENT/Mouth: No Hearing loss, No Ear Pain, No Nasal Congestion, No sore throat, No Rhinorrhea, No Swallowing Difficulty Eyes: No Eye Pain, No Swelling, No Redness, No Vision Changes Cardiovascular: No Chest Pain, No SOB, No Edema, No Palpitations Respiratory: No Cough, No Sputum, No Dyspnea Gastrointestinal: No Nausea, No Vomiting, +Diarrhea, No Constipation, +Abdominal pain, No Hematochezia, No Melena Genitourinary: No Dysuria, No Urinary Frequency, No Hematuria, No Flank Pain, No Urinary Flow Changes Musculoskeletal: No joint pain, No Myalgias, No Joint Swelling Skin: No Skin Lesions, No rash Neuro: No Weakness, No Headache Yes all other systems are reviewed and are negative Constitutional: Constitutional: Reports as per [facility] Past Medical History Attestation statement: The following information was validated with the patient. Source: old records reviewed Medical History Cyst of buttocks Morbid obesity No known health problems Surgical History H/O left knee surgery Social History Social History Alcohol intake: current Alcohol intake frequency: holidays/special occasions only Alcohol type: beer Smoked in Last 30 Days: No Use of substances other than those prescribed or required for medical reasons: No Advance Directives: No Physical Exam ED Vital Signs: Vital Signs - 24 hr 06/11/23 11:58 Temperature 98.5 F Pulse Rate 90 Respiratory Rate 18 Blood Pressure 130/85 Pulse Oximetry 99 Oxygen Delivery Method Room Air BMI result Body Mass Index 41.1 Const General: cooperative, healthy appearing and no acute distress Orientation/consciousness: patient oriented x3 Limitations: no limitations HENMT Head: Yes normal to inspection and Yes atraumatic Ears: hearing grossly normal bilaterally General nose exam: Normal external nose present Face and sinus: Yes normal facial exam Eyes General: appearance normal, both eyes and all related structures EOM: EOMs intact bilaterally Neck Neck: Yes normal visual inspection and Yes no meningeal signs Resp Effort & Inspection: normal respiratory effort and no respiratory distress Auscultation: clear to auscultation bilaterally Cardio Rate: regular rate Heart sounds: S1 normal heart sound present and S2 normal heart sound present GI Inspection: Yes normal to inspection Palpation (GI): Soft to palpation, Tenderness to palpation present (GI) in the LLQ and in the LUQ; with no rebound tenderness, no guarding and not rigid General: Yes no CVA tenderness Back/Spine/Pelvis Back: no CVA tenderness Skin Rashes: no rashes Wounds: no wounds Neuro General: patient oriented x3, tone normal and no meningeal signs Cranial nerves: Yes CN's II-XII intact bilaterally Gait exam (Neuro): Normal gait present Extrem General: Yes normal to inspection Course Course Course Narrative: This is an RME: Additional HPI, ROS, PE not included below will be deferred to primary provider. 37 yo m presents w/ diffuse abd pain & diarrhea X 2 days s/p eating chicken friend w/ same sx. No fevers, chills, cp, sob, abd pain Plan- labs, ua -labs reassuring. COVID-[address] abdomen pelvis w IV con IMPRESSION: 1. No acute intra-abdominal process seen. 2. Mild hepatic steatosis. Fleischner guidelines were followed. -UA with wbc's however contaminated will hold antibiotic treatment until Cx results Results discussed with patient including worrisome signs and symptoms and strict return precautions, and when to return to the emergency department. They verbalized understanding and feel safe for discharge at this time. Medications Administered Discontinued Medications Generic Name Dose Route Start Last Admin Trade Name Nickie PRN Reason Stop Dose Admin Iohexol 100 ml 06/11/23 15:52 06/11/23 15:52 Iohexol 350 Mg/Ml 100 Ml Infus..Btl IV 06/11/23 15:53 85 ml ONCE ONE Administration Medical Decision Making Medical Decision Making MDM Narrative: 37-year-old male with a past medical history of obesity presenting to the ED complaining of generalized/lower abdominal pain and nonbloody diarrhea since yesterday s/p eating chicken he made at home. On exam vital signs stable, NAD, nontoxic appearing, admits off with LUQ & LLQ tenderness, no rebound or guarding, no CVAT. Concern for food poisoning vs gastroenteritis vs diverticulitis. Lower suspicion for appendicitis, renal stone/pyelo. Rule out metabolic abnormalities Plan: Labs, UA, stool studies offered however patient declined, IVF, GI cocktail Please refer to course for remaining clinical decision making, interpretation of labs/imaging results, and discussions with consultants and/or family members. Differential Diagnosis Differential Diagnoses: The differential diagnosis associated with the presentation includes As above Admission/Observation Consideration of admission/observation: Escalation of care including admission/observation considered Lab Data [facility] Lab Attestation statement: I reviewed the patient's lab results. 06/11/23 14:52 06/11/23 14:51 Labs: Lab Results 06/11/23 06/11/23 06/11/23 Range/Units 14:51 14:52 15:24 WBC 8.0 (4.8-10.8) X10*3/uL RBC 5.12 (4.60-5.80) X10*6/uL Hgb 15.4 (14.0-18.0) g/dl Hct 45.6 (42.0-52.0) % MCV 89.1 (80.0-98.0) fL MCH 30.1 (27.0-33.0) pg MCHC 33.8 (31.0-36.0) g/dl RDW 11.9 (11.0-16.0) % Plt Count 261 (160-400) X10*3/uL MPV 8.9 L (9.4-12.4) fL Immature Gran % (Auto) 0.6 H (0.0-0.4) % Neut % (Auto) 52.3 (45-73) % Lymph % (Auto) 34.9 (20-40) % [place] % (Auto) 9.9 (2-11) % Eos % (Auto) 2.1 (0-4) % Baso % (Auto) 0.2 (0-2) % Lymph # (Auto) 2.8 (1.2-4.9) X10*3/uL [place] # (Auto) 0.8 (0.1-1.2) X10*3/uL Eos # (Auto) 0.2 (0.0-0.4) X10*3/uL Baso # (Auto) 0.0 (0.0-0.2) X10*3/uL Abs Immat Gran (auto) 0.05 H (0.00-0.03) X10*3/uL Absolute Neuts (auto) 4.2 (2.0-8.3) x10*3/uL Absolute Nucleated RBC 0.000 (0.0-0.012) X10*3/uL Nucleated RBC % (auto) 0.0 (0.0-0.2) /100WBC Sodium 137 (135-145) mmol/L Potassium 4.0 (3.3-5.1) mmol/L Chloride 102 (96-108) mmol/L Carbon Dioxide 26 (22-29) mmol/L Anion Gap 13 (12-20) BUN 10 (9-16) mg/dL Creatinine 0.76 (0.5-1.4) mg/dL Estim Creat Clear Calc 182.1 Estimated GFR > 60 Random Glucose 222 H (60-115) mg/dL Calcium 9.4 (8.4-10.2) mg/dL Magnesium 2.1 (1.6-2.6) mg/dL Total Bilirubin 0.4 (0.0-1.0) mg/dL AST 19 (5-37) U/L ALT 21 (0-40) U/L Alkaline Phosphatase 70 (39-117) U/L Total Protein 7.3 (6.5-8.0) g/dL Albumin 4.1 (3.5-5.0) g/dL Lipase 13 (8-78) U/L Urine Color Yellow Urine Appearance Clear Urine pH 5.5 (5.0-9.0) Ur Specific [place] >= 1.030 H (1.005-1.025) Urine Protein Negative (Neg-Trace) mg/dL Urine Glucose (UA) >=1000 H (Negative) mg/dL Urine Ketones Negative (Negative) mg/dL Urine Blood Negative (Negative) Urine Nitrite Negative (Negative) Ur Leukocyte Esterase Negative (Negative) Urine RBC 0-2 (0-2) /HPF Urine WBC 6-10 H (0-5) /HPF Ur Squamous Epith Cells 6-10 (0-2) /HPF Urine Bacteria 2+ (None Seen) Hyaline Casts 0-2 (0-2) /LPF COVID-19 (CINDY) Negative (Negative) COVID-19 Clin Com See Note Radiology Impression Discussion of test interpretation with radiology: I have reviewed the radiologist's reading. External Record Review External record reviewed: Inpatient record, Office record, Outpatient record, Prior outpatient labs, Prior outpatient radiology, Primary care record and Outside ED record Tests considered The following testing was considered but not selected: As above Prescription Management I considered prescription management with: Pain Medication Discharge Plan Discharge Clinical Impression: Gastroenteritis Patient Disposition: Home, Self-Care Instructions: Gastroenteritis (DC) Additional Instructions: Your blood work and CT scan were reassuring You likely have food poisoning/viral gastroenteritis Make sure staying hydrated at home, avoid spicy foods, sweets, caffeine and chocolate Please follow-up with her doctor If you are unable to eat or drink persistent or worsening abdominal return to the ED Mccurdy an?lisis de juju y mccurdy tomograf?a computarizada fueron tranquilizadores. Probablemente tenga intoxicaci?n alimentaria o gastroenteritis viral. Aseg?rate de mantenerte hidratado en casa, shayla las comidas picantes, los dulces, la cafe?na y el chocolate. Por favor jose miguel un seguimiento con mccurdy m?dico. Si no puede comer ni beber, el abdomen persiste o empeora, regrese al servicio de urgencias. Prescriptions: No Action acetaminophen [Tylenol Extra Strength] 500 mg tablet 500 mg PO Q6H PRN (Reason: pain or fever) Qty: 20 0RF acetaminophen [Tylenol Extra Strength] 500 mg tablet 500 mg PO Q6H PRN (Reason: pain or fever) Qty: 20 0RF cephalexin 500 mg tablet 500 mg PO Q6H 10 Days Qty: 40 0RF cyclobenzaprine 5 mg tablet 5 mg PO Q8H PRN (Reason: pain (scale score 7-10)) Referrals: Name,MD Álvaro [Primary Care Provider] - 5 days Print Language: Vietnamese
[2023-06-11 14:55] LABS: MANUAL DIFF FLAG NO
[2023-06-11 15:09] LABS: Basophils Percent Auto 0.2 % (0-2); Eosinophils Absolute Auto 0.2 X10*3/uL (0.0-0.4); Eosinophils Percent Auto 2.1 % (0-4); Hematocrit 45.6 % (42.0-52.0); Hemoglobin 15.4 g/dl (14.0-18.0); Imm Gran Abs Auto 0.05 X10*3/uL (0.00-0.03); Imm Gran Pct Auto 0.6 % (0.0-0.4); Lymphocytes Absolute Auto 2.8 X10*3/uL (1.2-4.9); Lymphocytes Percent Auto 34.9 % (20-40); Mean Corpuscular HGB Conc 33.8 g/dl (31.0-36.0); Mean Corpuscular Hemoglobin 30.1 pg (27.0-33.0); Mean Corpuscular Volume 89.1 fL (80.0-98.0); Mean Platelet Volume 8.9 fL (9.4-12.4); Monocytes Absolute Auto 0.8 X10*3/uL (0.1-1.2); Monocytes Percent Auto 9.9 % (2-11); Neutrophils Absolute Auto 4.2 x10*3/uL (2.0-8.3); Neutrophils Percent Auto 52.3 % (45-73); Platelet Count 261 X10*3/uL (160-400); Red Blood Count 5.12 X10*6/uL (4.60-5.80); Red Cell Distribution Width 11.9 % (11.0-16.0)
[2023-06-11 15:11] LABS: COVID-19 Test Negative (Negative); IDNOW Serial# 08D9AD1C
[2023-06-11 15:21] LABS: Alanine Aminotransferase 21 U/L (0-40); Albumin Level 4.1 g/dL (3.5-5.0); Alkaline Phosphatase 70 U/L (39-117); Anion Gap 13 (12-20); Aspartate Amino Transferase 19 U/L (5-37); Bilirubin Total 0.4 mg/dL (0.0-1.0); Blood Urea Nitrogen 10 mg/dL (9-16); Calcium 9.4 mg/dL (8.4-10.2); Carbon Dioxide 26 mmol/L (22-29); Chloride 102 mmol/L (96-108); Creatinine Clr Calc Pharmacy 182.1; Estimated Glomerular Filt Rate > 60; Glucose Random 222 mg/dL (60-115); Lipase 13 U/L (8-78); Magnesium 2.1 mg/dL (1.6-2.6); Sodium 137 mmol/L (135-145); Total Protein 7.3 g/dL (6.5-8.0)
[2023-06-11 15:32] LABS: Appearance Urine Clear; Color Urine Yellow; Glucose Urine UA >=1000 mg/dL (Negative); Leukocyte Esterase Urine Negative (Negative); Nitrite Urine Negative (Negative); PH 5.5 (5.0-9.0); Specific Gravity - Urine >= 1.030 (1.005-1.025); UMIC TRIGGER UACC YES; Urine Blood Negative (Negative); Urine Ketones Negative (Negative); Urine Protein Negative (Neg-Trace)
[2023-06-11 15:37] LABS: Bacteria Urine 2+ (None Seen); Hyaline Casts Urine 0-2 /LPF (0-2); RBC Urine 0-2 /HPF (0-2); UACC Culture Trigger YES
[2023-06-11] MEDS: iohexoL 350 MG/ML 100 ML INFUS..BTL IV (15:52)
[2023-06-11] MEDS: Magnesium Hydrox/Alum Hydrox 30 ML ORAL.SUSP PO (16:36)
[2023-06-11] MEDS: Ketorolac Tromethamine 15 MG/ML VIAL IVPUSH (16:36)
[2023-06-11] MEDS: Famotidine/PF 20 MG/2 ML VIAL IVPUSH (16:38)
[2023-06-11 17:00] VITALS: BP 132/84; PULSE 82; RESP 20; TEMP 36.9
== END 2023-06-11 17:02 | disposition home or self-care (01) ==
PROVIDERS: Physician Assistant; Emergency Provider Emergency Medicine; PCP Internal Medicine Geriatric Medicine
DX: K52.9 Noninfective gastroenteritis and colitis, unspecified (principal); R10.30 Lower abdominal pain, unspecified; Z20.822 Contact with and (suspected) exposure to COVID-19; Z20.828 Contact with and (suspected) exposure to other viral communicable diseases; Z79.899 Other long term (current) drug therapy
CPT/HCPCS: 36415; 74177; 80053; 81001; 83690; 83735; 85025; 87086; 87635; 96374; 96375; 99284; J1885; Q9967

== ENCOUNTER 2024-07-14 10:39 | Outpatient (REF) | payer MEDICAID, SELFPAY ==
--- NOTE | ~2024-07-14 | XR_ITS ---
EXAMINATION: XR TIBIA AND FIBULA, RIGHT CLINICAL INFORMATION: Piece of chair fell on distal medial leg. COMPARISON: 08/21/2017 knee right. TECHNIQUE: AP and lateral views of the right tibia and fibula were obtained, 3 views total. FINDINGS: Minimal degenerative changes right knee. Bone mineralization is normal. No gross displaced fracture of the shafts of the tibia/fibula appreciated. XR/XR tibia fibula RT 2V IMPRESSION: No gross displaced fracture of the shafts of the tibia/fibula appreciated. This study was presented today, July 14, 2024, for interpretation. Stat results provided at this time as requested by referring provider. Electronically signed by: Maura Parra MD 07/14/2024 12:22 PM EDT
== END 2024-07-14 10:40 | disposition home or self-care (01) ==
LOC: HO.HHCX 10:39
PROVIDERS: Visit Provider Emergency Medicine
DX: S89.91XA Unspecified injury of right lower leg, initial encounter (principal); M79.604 Pain in right leg
CPT/HCPCS: 73590; 93971

== ENCOUNTER 2024-07-14 12:43 | Outpatient (REF) | payer MEDICAID, SELFPAY ==
--- NOTE | ~2024-07-14 | US_ITS ---
EXAMINATION: US TRIPLEX LOWER EXTREMITY, RIGHT CLINICAL INFORMATION: Right leg pain, trauma, and swelling COMPARISON: Bilateral lower extremity duplex on 08/23/2017 TECHNIQUE: Color-flow triplex imaging with spectral analysis and compression Doppler were performed on the right lower extremity. FINDINGS: Respiratory variation, normal compression and augmented flow are noted throughout the right lower extremity. The visualized common femoral vein, superficial femoral vein, profunda femoral vein, popliteal vein and midcalf peroneal and posterior tibial venous segments show no evidence of deep venous thrombosis. There is no Kim's cyst. Diffuse subcutaneous edema. US/US venous duplex LE RT IMPRESSION: No evidence of deep venous thrombosis involving the right lower extremity. Electronically signed by: Mindy Hill MD 07/14/2024 01:32 PM EDT
== END 2024-07-14 12:44 | disposition home or self-care (01) ==
LOC: HO.US 12:43
PROVIDERS: Visit Provider Emergency Medicine
DX: M79.604 Pain in right leg (principal)
CPT/HCPCS: 93971

== ENCOUNTER 2024-09-20 16:52 | Emergency (ER) | payer MEDICAID, SELFPAY ==
--- NOTE | ~2024-09-20 | XR_ITS ---
CLINICAL HISTORY: coughing. pNeumonia? 1 view chest x-ray Comparison: None Findings: No consolidation, pleural effusion or pneumothorax. Normal size heart. No acute fracture. IMPRESSION: Mild central bronchial wall thickening. No superimposed focal infiltrate or consolidation. This document has been electronically signed by: Willa Adams DO on 09/20/2024 18:53:11
[2024-09-20 18:02] VITALS: BP 127/78; PULSE 94; RESP 18; TEMP 36.9; O2SAT 96; BMI 40.2
--- NOTE | 2024-09-20 18:07 | ED.GENADULT ---
HPI - General Adult General Chief complaint: Upper Respiratory Symptoms Stated complaint: chest congestion Time Seen by Provider: 09/20/24 20:57 Source: patient, family, RN notes reviewed, old records reviewed and center director lead teacher Mode of arrival: ambulatory Limitations: language barrier History of Present Illness ED Provider: Stefan HPI narrative: 38-year-old male presents for evaluation of sore throat, cough, congestion. Symptoms started 3 days ago His daughter is here with both strep and COVID-19. The patient's is here with COVID-19 The patient arrives with stable vital signs Related Data Home Medications ?Medication ?Instructions ?Recorded ?Confirmed cyclobenzaprine 5 mg tablet 5 mg PO Q8H PRN pain (scale score 10/15/22 7-10) Previous Rx's ?Medication ?Instructions ?Recorded acetaminophen 500 mg tablet 500 mg PO Q6H PRN pain or fever 07/17/20 (Tylenol Extra Strength) #20 tabs acetaminophen 500 mg tablet 500 mg PO Q6H PRN pain or fever 05/01/21 (Tylenol Extra Strength) #20 tabs cephalexin 500 mg tablet 500 mg PO Q6H 10 days #40 tabs 10/11/22 amoxicillin 875 mg-potassium 1 tab PO Q12H #14 tabs 09/20/24 clavulanate 125 mg tablet Allergies Allergy/AdvReac Type Severity Reaction Status Date / Time No Known Allergies Allergy Verified 09/20/24 18:04 [No Known Allergies*] Review of Systems Constitutional: Constitutional: Reports body ache(s), Reports chills, Reports fever(s) and Reports headache(s) ENT: Reports headache(s), Reports sore throat and Denies throat swelling Cardiovascular: Cardiovascular: Denies dyspnea Respiratory: Respiratory: Reports cough and Denies dyspnea Gastrointestinal: Gastrointestinal: Denies abdominal pain, Denies nausea and Denies vomiting Musculoskeletal: Musculoskeletal: Denies back pain Integumentary/Breasts: Skin/Breast: Denies rash Neurologic: Reports headache(s) Allergic/Immunologic: Allergic/Immunologic: Denies throat swelling PMFSH Past Medical History Medical History Cyst of buttocks Morbid obesity No known health problems Surgical History H/O left knee surgery Social History Social History Alcohol intake: current Alcohol intake frequency: holidays/special occasions only Alcohol type: beer Advance Directives: No Advance Directives Information Provided: No Physical Exam ED Vital Signs: Vital Signs - 24 hr 09/20/24 18:02 09/20/24 22:00 Temperature 98.4 F 98.4 F Pulse Rate 94 94 Respiratory Rate 18 18 Blood Pressure 127/78 127/78 Pulse Oximetry 96 96 Oxygen Delivery Method Room Air Room Air BMI result Body Mass Index 40.2 Const General: healthy appearing, comfortable, no acute distress, alert and awake Nutritional Appearance: well nourished Orientation/consciousness: patient oriented x3 HENMT Head: Yes normocephalic and Yes atraumatic Eyes Eyelids: Yes eyelids normal Conjunctivae: conjunctivae normal Sclerae: sclerae normal Corneas: corneas normal Pupils: Equal, round and reactive pupils present EOM: EOMs intact bilaterally Neck Neck: Yes full ROM Resp Effort & Inspection: normal respiratory effort, able to speak in complete sentences and not labored Skin General skin exam: elasticity normal Neuro General: patient oriented x3 Cranial nerves: Yes Equal, round and reactive pupils present and Yes Bilaterally intact EOM present Cognition (Neuro): normal cognition Extrem Other: Moving all extremities well without any obvious deformities Course Course Course Narrative: RME: 38-year-old female presents to the ED for URI symptoms consisting of sore throat, cough, nasal congestion for the past couple of days. SARs strep chest x-ray ordered. Medications Administered Discontinued Medications Generic Name Dose Route Start Last Admin Trade Name Freq PRN Reason Stop Dose Admin Amoxicillin/Clavulanate Potassium 875 mg 09/20/24 21:26 09/20/24 21:36 Amoxicillin/Potassium Clav 875 Mg Tablet PO 09/20/24 21:27 875 mg ONCE ONE Administration Medical Decision Making Medical Decision Making MDM Narrative: 38-year-old male presents for evaluation of sore throat, cough. His daughter has both strep pharyngitis and COVID-19, he tested positive for strep pharyngitis. His tested positive for COVID-19. We will treat the family for strep pharyngitis as they live together. He is not hypoxic, chest x-ray does not show focal consolidation, he does not require treatment for COVID night Differential Diagnosis Differential Diagnoses: The differential diagnosis associated with the presentation includes Pharyngitis Upper respiratory infection Bronchitis Pneumonia COVID-19 Lab Data MDM Lab Attestation statement: I reviewed the patient's lab results. Strep pharyngitis Labs: Lab Results 09/20/24 Range/Units 18:42 Influenza Type A (PCR) NEGATIVE (Negative) Influenza Type B (PCR) NEGATIVE (Negative) RSV RNA Qual (PCR) NEGATIVE (Negative) SARS-CoV-2 RNA (RT-PCR) NEGATIVE (Negative) S. pyogenes GrpA RETA Positive A (Negative) Radiology Impression Discussion of test interpretation with radiology: I have reviewed the radiologist's reading. Radiologist Impression: Findings: No consolidation, pleural effusion or pneumothorax. Normal size heart. No acute fracture. IMPRESSION: Mild central bronchial wall thickening. No superimposed focal infiltrate or consolidation. This document has been electronically signed by: Willa Adams DO on 09/20/2024 18:53:11 Discharge Plan Discharge Clinical Impression: Acute streptococcal pharyngitis Patient Disposition: Home, Self-Care Instructions: Strep Throat (ED) Additional Instructions: You tested positive for strep pharyngitis Take Augmentin twice daily for 1 week Drink lots of fluids. Use Motrin/Tylenol for fevers, body aches Follow-up with your primary doctor, return for new or worsening symptoms Prescriptions: New amoxicillin-pot clavulanate 875-125 mg tablet 1 tab PO Q12H Qty: 14 0RF No Action acetaminophen [Tylenol Extra Strength] 500 mg tablet 500 mg PO Q6H PRN (Reason: pain or fever) Qty: 20 0RF acetaminophen [Tylenol Extra Strength] 500 mg tablet 500 mg PO Q6H PRN (Reason: pain or fever) Qty: 20 0RF cephalexin 500 mg tablet 500 mg PO Q6H 10 Days Qty: 40 0RF cyclobenzaprine 5 mg tablet 5 mg PO Q8H PRN (Reason: pain (scale score 7-10)) Stand Alone Forms: Work/School Release Interventions: ED Discharge Assessment Last Done: 09/20/24 22:00 Discharge Date/Time: 09/20/24 22:01 Print Language: Kazakh
[2024-09-20 19:03] LABS: IDNOW Serial# 6674DD1D; Strep A Nucleic Acid Positive (Negative)
[2024-09-20 19:36] LABS: Influenza A PCR NEGATIVE (Negative); Influenza B PCR NEGATIVE (Negative); Resp Syncy Virus RNA Qual PCR NEGATIVE (Negative); SARS COV2 PCR INHOUSE NEGATIVE (Negative)
[2024-09-20] MEDS: Amoxicillin/Potassium Clav 875 MG TABLET PO (21:36)
[2024-09-20 22:00] VITALS: BP 127/78; PULSE 94; RESP 18; TEMP 36.9; O2SAT 96
== END 2024-09-20 22:01 | disposition home or self-care (01) ==
PROVIDERS: Physician Assistant; Emergency Provider Emergency Medicine Emergency Medical Services
DX: J02.0 Streptococcal pharyngitis (principal); R09.89 Other specified symptoms and signs involving the circulatory and respiratory systems; R05.9 Cough, unspecified; Z03.818 Encounter for observation for suspected exposure to other biological agents ruled out
CPT/HCPCS: 0241U; 71045; 87651; 99282; 99283

== ENCOUNTER → 2024-09-20 18:06 | Outpatient (BNV) | payer MEDICAID, SELFPAY | PROVIDERS: Visit Provider Radiology Diagnostic Radiology | DX: R91.8 Other nonspecific abnormal finding of lung field (principal) | CPT/HCPCS: 71045 ==

== ENCOUNTER 2025-07-28 15:27 | Outpatient (REF) | payer MEDICAID, SELFPAY ==
--- NOTE | ~2025-07-28 | XR_ITS ---
EXAMINATION: XR KNEE, LEFT CLINICAL INFORMATION: acute on chronic left knee pain, remote history of ORIF of left tibia COMPARISON: Previous x-ray December 2016 TECHNIQUE: Four views of the left knee. FINDINGS: There is extensive surgical hardware in the proximal tibia with plate and multiple screws that appears unchanged. Part of the second to most inferior screw in the femoral shaft is not seen similar to prior exam. There is an old healed fracture of the lateral tibial plateau. No acute fracture. There may be slight increased lateral subluxation of the proximal tibia with respect to the distal femur. Bone alignment is otherwise normal. 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 There is a small joint effusion. XR/XR knee LT 3V IMPRESSION: Surgical hardware in the proximal tibia and old healed lateral tibial plateau fracture is similar to August 2017 exam. 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 Electronically signed by: Charisma Vargas MD 07/28/2025 05:13 PM SAIMA
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
--- OUTSIDE RECORDS SUMMARY | 2025-07-28 18:37 | XMS_ITS | Encounter Summary ---
Author Organization [employer] Address [address] [place] [address] Care Team Providers Care Field Crop Farmer Name Role Phone Unavailable Primary Care Provider Unavailabl e Encounter Details Date Type Department Care Team (Latest Contact Info) Description 07/28/2025 Travel Social History Tobacco Use Types Packs/Day Years Used Date Smoking Tobacco: Never Passive Smoke Exposure: Never Smokeless Tobacco: Never Alcohol Use Standard Drinks/Week Comments Yes 1 (1 standard drink = 0.6 oz pur e alcohol) Sex and Gender Information Value Date Recorded Sex Assigned at Male 07/16/2022 10:31 AM EDT Legal Sex Male 10:31 AM EDT Gender Identity Male 01/10/2024 1:03 PM EDT Sexual Orientation Straight 01/10/2024 1: 01 PM EDT documented as of this encounter Plan of Treatment Upcoming Encounters Date Type Department Care Team (Late st Contact Info) Description 09/01/2025 2:15 PM EST Office Visit [facility] [address] [place] [address] Yordy Menjivar FNP [address] [place] [address] documented as of this encounter Visit Diagnoses Not on filedocumented in this encounter
--- OUTSIDE RECORDS SUMMARY | 2025-07-28 18:37 | XMS_ITS | Clinical Summary ---
Author Organization [employer] Address [address] [place] [address] [address] [place] [address] Care Team Providers Care Maintenance Director Name Role Phone Unavailable Primary Care Provider Unavailabl e Allergies No known active allergies Medications meloxicam (Mobic) 7.5 MG tablet Take 1 tablet (7.5 mg) by mouth Once per day for 20 days. 20 tablet 5 08/17/20 25 Active acetaminophen (Tylenol) 500 MG tablet Take 2 tablets (1,000 mg) by mouth every 6 (six) hours if needed for moderate pain or fever for up to 25 doses. 50 tablet 4 07/28/20 25 Discontinu ed(Therapy completed) ibuprofen 400 MG tablet Take 1 tablet (400 mg) by mouth every 6 (six) hours if needed for moderate pain or fever for up to 30 doses. 30 tablet 4 07/28/20 25 Discontinu ed(Therapy completed) Active Problems Problem Noted Date Diagnosed Date Right leg pain 07/14/2024 Encounters Date Type Department Care Team Description 07/28/2025 3:00 PM EST Office Visit [facility] [address] [place] [address] Name, MD Álvaro Left knee pain, unspecified chronicity (Primary Dx); History of left knee surgery; Elevated blood pressure reading; Situational anxiety 07/28/2025 Travel from Last 3 Months Social History Tobacco Use Types Packs/Day Years [...] Orientation Straight 01/10/2024 1: 01 PM EDT Last Filed Vital Signs Vital Sign Reading [...] Mass Index 40.06 07/28/2025 3:03 PM EST Plan of Treatment Upcoming Encounters Date Type Department Care Team (Late st Contact Info) Description 09/01/2025 2:15 PM EST Office Visit [facility] [address] [place] [address] Yordy Menjivar FNP [address] [place] [address] Health Maintenance Due Date Last Done Comments Depression Screening 1985 HIV Screening 1985 Lipid Panel 1985 SDOH Screening 1985 Disability Screening 1983 Alcohol/Substance Use Screening 1995 Family Planning (PISQ) 1998 HPV Vaccines (1 - Male 3-dos e series) 1998 Hepatitis C Screening 2001 Hepatitis B Vaccines (1 of 3 - 19+ 3-dose series) 2002 COVID-19 Vaccine ( - 2024-2 6 season) 2025 02/19/2021, 01/20/2021 Influenza Vaccine (#1) 2025 07/30/2017 Tobacco Screening 07/28/2026 07/28/2025 DTaP/Tdap/Td Vaccines (2 - T d or Tdap) 10/11/2032 10/11/2022 Zoster Vaccines (1 of 2) 2033 RSV Patients and Patients Aged 60 years or older (1 - 1-dose 75+ series) 2058 HIB Vaccines Aged Out No longer eligi ble based on patient's age to complete this topic Hepatitis A Vaccines Aged Out No long er eligible based on patient's age to complete this topic IPV Vaccines Aged Out No longer eligi ble based on patient's age to complete this topic Meningococcal B Vaccine Aged Out No l onger eligible based on patient's age to complete this topic Meningococcal Vaccine Aged Out No blu [place] eligible based on patient's age to complete this topic Pneumococcal Vaccine: Pediatrics (0 to 5 Years) and At-Risk Patients (6 to 49) Years Aged Out No longer eligible b ased on patient's age to complete this topic RSV under 20 months Aged Out No longe r eligible based on patient's age to complete this topic Rotavirus Vaccines Aged Out No longer eligible based on patient's age to complete this topic Procedures Procedure Name Priority Date/Time Associated Diagnosis Comments XR KNEE 3 VIEWS LEFT Routine 07/28/2025 3:58 PM EST Left knee pain, unspecified chronicity History of left knee surgery from Last 3 Months Results * XR Knee 3 Views Left (07/28/2025 3:58 PM EST) Anatomical Region Laterality Modality Lower Extremities, Knee Left [facility] 07/28/2025 3:58 PM EST Narrative 07/28/2025 5:16 PM EST [place] [address] XRay Report Signed Patient: Yasmany Galeana MR#: [id number] : 1985 Acct:[id number] Age/Sex: 39 / M ADM Date: 07/28/25 Loc: [facility] Attending Dr: Álvaro Bragg MD Ordering Physician: Álvaro Bragg MD Date of Service: 07/28/25 Procedure(s): XR knee LT 3V Accession Number(s): [id number] cc: Álvaro Bragg MD Reason for Exam: [...] by: Charisma Vargas MD 07/28/2025 05:13 PM [facility] Dictated By: Charisma Vargas MD Signed By: <Electronically signed by Charisma Vargas MD in OV> 07/28/25 1713 DD/ 1558 TD/TT: 07/28/25 1606 Timber Supervisor: JENNIFER Procedure Note Donotuseinterpreter, Image - 07/28/2025 [place] [address] XRay Report Signed Patient: Yasmany Galeana [facility]#: [id number] : 1985Acct:[id number] Age/Sex: 39 / MADM Date: 07/28/25 Loc: [facility] Attending Dr: Álvaro Bragg MD Ordering Physician: Álvaro Bragg MD Date of Service: 07/28/25 Procedure(s): XR knee LT 3V Accession Number(s): [id number] cc: Álvaro Bragg MD Reason for Exam: [...] by: Charisma Vargas MD 07/28/2025 05:13 PM [facility] Dictated By: Charisma Vargas MD Signed By: <Electronically signed by Charisma Vargas MD in OV> 07/28/25 1713 DD/ 1558 TD/TT: 07/28/25 1606 Timber Supervisor: JENNIFER Álvaro Name IMG XR PROCEDURES Final Result from Last 3 Months Insurance [facility] STANDARD
[2025-07-28 18:58] LABS: Anion Gap 14 (12-20); Blood Urea Nitrogen 13 mg/dL (9-16); Calcium 9.3 mg/dL (8.4-10.2); Carbon Dioxide 25 mmol/L (22-29); Chloride 100 mmol/L (96-108); Estimated Glomerular Filt Rate > 60; Potassium 4.0 mmol/L (3.3-5.1); Sodium 135 mmol/L (135-145)
== END 2025-07-28 15:28 | disposition home or self-care (01) ==
LOC: HO.HHCL 15:27
PROVIDERS: PCP Internal Medicine Geriatric Medicine; Visit Provider Internal Medicine Geriatric Medicine
DX: G89.29 Other chronic pain (principal); M25.562 Pain in left knee; R03.0 Elevated blood-pressure reading, without diagnosis of hypertension; Z98.890 Other specified postprocedural states
CPT/HCPCS: 36415; 73562; 80048

== ENCOUNTER → 2025-07-28 15:36 | Outpatient (BNV) | payer MEDICAID, SELFPAY | PROVIDERS: PCP Internal Medicine Geriatric Medicine; Visit Provider Radiology Diagnostic Radiology | DX: M17.12 Unilateral primary osteoarthritis, left knee (principal); Z96.7 Presence of other bone and tendon implants | CPT/HCPCS: 73562 ==

== ENCOUNTER 2025-09-02 08:42 | Outpatient (REF) | payer MEDICAID, SELFPAY ==
--- OUTSIDE RECORDS SUMMARY | 2025-09-01 14:15 | XMS_ITS | Encounter Summary ---
Author Organization [employer] [facility] Address [address] [place] [address] Care Team Providers Care Physicist Acoustics Name Role Phone Yordy Menjivar Primary Care Provider [phone] Reason for Referral * Consultation (Routine) - Authorized Specialty Diagnoses / Procedures Referred By Letty connelly Referred To Contact Diagnoses Encounter for medical examination to establish care Yordy Menjivar FNP [address] [place] [address] Phone: tel: fax: Referral ID Status Reason Start Date Expiration Date Visits Requested Visits Authorized [id number] Authorized Specialty Services Required 09/01/2026 1 1 * Consultation (Routine) - Authorized Specialty Diagnoses / Procedures Referred By Letty connelly Referred To Contact Nutrition Diagnoses Encounter for medical examination to establish care Yordy Menjivar FNP [address] [place] [phone] Phone: tel: fax: Referral ID Status Reason Start Date Expiration Date Visits Requested Visits Authorized [id number] Authorized Consult and Treat 09/01/2025 09/01/2026 1 1 Encounter Details Date Type Department Care Team (Late st Contact Info) Description 09/01/2025 2:15 PM EST Office Visit [facility] [address] [place] [address] Yordy Menjivar FNP [address] [place] [address] Encounter for medical examination to establish care (Primary Dx); New onset type 2 diabetes mellitus (HCC); Encounter for weight management; Sorethroat; Strep pharyngitis; Dietary counseling; Exercise counseling; Class 2 severe obesity due to excess calories with serious comorbidity and body mass index (BMI) of 39.0 to 39.9 in adult Social History Tobacco Use Types Packs/Day Years Used Date Smoking Tobacco: Never Passive Smoke Exposure: Never Smokeless Tobacco: Never Tobacco Cessation:Counseling Given: Not Answered Alcohol Use Standard Drinks/Week Comments Yes 1 (1 standard drink = 0.6 oz pur e alcohol) Housing Stability Answer Date Recorded What is your housing situation today? I have janelle johnson 08/24/[address] you li ve. Do you have problems with any of the following? None of the above 08/24/2025 Food Insecurity Answer Date Recorded Within the past 12 months, y ou worried that your food would run out before you got money to buy more: Never True 08/24/2025 Within the past 12 months,th e food you bought just didn't last and you didn't have enough money to get more: Never True 05/2025 Transportation Answer Date Recorded In the past 12 months, has l ack of transportation kept you from medical appts, meetings, work or from getting things needed for daily living? No 08/24/2025 Utilities Answer Date Recorded In the past 12 months, has t he electric, gas, oil or water company threatened to shut off services in your home? No 08/24/2025 Internet Access Answer Date Recorded Internet Access Q1 Yes 08/24/2025 Internet Access Q2 Not on file 08/24/2025 Sex and Gender Information Value Date Recorded Sex Assigned at Male 07/16/2022 10:31 AM EDT Legal Sex Male 10:31 AM EDT Gender Identity Male 01/10/2024 1:03 PM EDT Sexual Orientation Straight 01/10/2024 1: 01 PM EDT documented as of this encounter Last Filed Vital Signs Vital Sign Reading Time Taken Comments Blood Pressure 138/82 09/01/2025 2:16 PM EST Pulse 101 09/01/2025 2:16 PM EST Temperature 37 C (98.6 F) 09/01/2025 2:16 PM EST Respiratory Rate 18 09/01/2025 2:16 PM EST Oxygen Saturation 98% 09/01/2025 2:16 PM EST Inhaled Oxygen Concentration - - Weight 129 kg (283 lb 12.8 oz) 09/01/2025 2:16 P M EST Height 180.3 cm (5' 11 ) 09/01/2025 2:16 PM EST Body Mass Index 39.58 09/01/2025 2:16 PM EST documented in this encounter Plan of Treatment Upcoming Encounters Date Type Department Care Team (Late st Contact Info) Description 10/06/2025 3:15 PM EST Office Visit [facility] [address] [place], [place] [phone] Yordy Menjivar FNP [address] [place], [place] [phone] Scheduled Orders Name Type Priority Associated Diagnoses Orde r Schedule Lipid Panel, Standard Lab Routine Encounter for medical examination to establish care Expected: 09/01/2025 (Approximate), Expires: 09/01/2026 Scheduled Referrals Name Type Priority Associated Diagnoses Orde r Schedule Referral to Nutrition Therapy Outpatient Referral Routine Encounter for medical examination to establish care Expected: 09/01/2025 (Approximate), Expires: 09/01/2026 Referral to Care Management Outpatient Referral Routine Encounter for medical examination to establish care Expected: 09/01/2025 (Approximate), Expires: 09/01/2026 documented as of this encounter Goals Goal Patient Goal Type Associated Problems Recent Progress Patient-Stated? Author Help patients manage their type 2 diabetes Care Plan Help patients manage their type 2 diabetes No Mohan Power MD Patient has chronic kidney disease Care Plan Patient has chronic kidney disease No Mohan Power MD Patient has chronic kidney disease Care Plan Patient has chronic kidney disease No Mohan Power MD Patient has chronic kidney disease Care Plan Patient has chronic kidney disease No Yordy Menjivar FNP documented as of this encounter Procedures Procedure Name Priority Date/Time Associated Diagnosis Comments POCT INFLUENZA B (ID NOW RAPID MOLECULAR) Routine 09/01/2025 2:58 PM EST Sorethroat POCT INFLUENZA A (ID NOW RAPID MOLECULAR) Routine 09/01/2025 2:56 PM EST Sorethroat POC HARRISON ID NOW STREP A Routine 09/01/2025 2:55 PM EST Sorethroat POCT RAPID COVID ANTIGEN Routine 09/01/2025 2:54 PM EST Sorethroat POCT GLUCOSE Routine 09/01/2025 2:16 PM EST New onset type 2 diabetes mellitus (HCC) documented in this encounter Results * POCT Rapid Influenza B HARRISON ID NOW (09/01/2025 2:58 PM EST) Influenza B Negative Negative, Indeterminate [facility] QC Media Lot # [id number] [facility] Lot# Expiration Date [facility] Swab 09/01/2025 2:58 PM EST Yordy Menjivar [facility] POINT OF CARE TEST ENTER/EDIT ORDERABLES Final Result Performing Organization Address [facility]/ZIP Co de Phone Number [facility] [address] [place] [phone] * POCT Rapid Influenza A HARRISON ID NOW (09/01/2025 2:56 PM EST) Influenza A Negative Negative, Indeterminate [facility] QC Media Lot # [id number] [facility] Lot# Expiration Date [facility] Swab 09/01/2025 2:56 PM EST Yordy Menjivar [employer] POINT OF CARE TEST ENTER/EDIT ORDERABLES Final Result Performing Organization Address City/[facility]/ZIP Co de Phone Number [facility] [address] [place] [phone] * (ABNORMAL) POCT Rapid Strep A HARRISON ID NOW (09/01/2025 2:55 PM EST) Rapid Strep A Screen Positive( A) Negative, None Detected QC Media Lot # [id number] Lot# Expiration Date 1410,026 Swab 09/01/2025 2:55 PM EST Yordy Menjivar [employer]GER [employer] POINT OF CARE TEST ENTER/EDIT ORDERABLES Final Result * POCT Rapid Covid-19 BinaxNOW (09/01/2025 2:54 PM EST) [facility] Rapid COVID Ag Negative QC Media Lot # [id number] Lot# Expiration Date 8,026 Swab 09/01/2025 2:54 PM EST Result [facility] Yordy ONOFREP POINT OF CARE TEST ENTER/EDIT ORDERABLES Final Result * (ABNORMAL) POCT Glucose (09/01/2025 2:16 PM EST) [facility] Glucose Blood, POC 212(A) 60 - 200 mg/dL QC Media Lot # [id number] Lot# Expiration Date 772,026 Blood Capillary blood specimen / Unknown 09/01/2025 2:16 PM EST Result [facility] us Yordy LIN POINT OF CARE TEST ENTER/EDIT ORDERABLES Final Result documented in this encounter Visit Diagnoses Diagnosis Encounter for medical examination to establish care- Primary New onset type 2 diabetes mellitus (HCC) Encounter for weight management Sorethroat Acute pharyngitis Strep pharyngitis Dietary counseling Dietary surveillance and counseling Exercise counseling Class 2 severe obesity due to excess calories with serious comorbidity and body mass index (BMI) of 39.0 to 39.9 in adult documented in this encounter Additional Health Concerns Active Problems Noted Date Diagnosed Date Help patients manage their type 2 diabetes 07/29 Patient has chronic kidney disease 07/29/2025 Patient has chronic kidney disease 08/09/2025 Patient has chronic kidney disease 09/01/2025 documented as of this encounter Care Teams Physicist Acoustics Relationship Specialty Start Date End Date Yordy Menjivar FNP [address] [place] [phone] PCP - General Family Medicine 09/01/25 documented as of this encounter
--- OUTSIDE RECORDS SUMMARY | 2025-09-02 09:12 | XMS_ITS | Clinical Summary ---
Author Organization [employer] Address [address] [place] [address] [address] [place] [address] Care Team Providers Care Office Assistance Name Role Phone Yordy Menjivar Primary Care Provider [phone] Allergies No known active allergies Medications metFORMIN (Glucophage) 1000 MG tablet Take 1 tablet (1,000 mg) by mouth with breakfast and with evening meal. 60 tablet 09/01/20 25 026 Active amoxicillin (Amoxil) 500 MG capsule Take 1 capsule (500 mg) by mouth every 12 (twelve) hours for 10 days. 20 capsule 09/01/20 25 025 Active glucose blood (FREESTYLE LITE) test stripIndicatio ns:New onset type 2 diabetes mellitus (HCC) Use to test blood sugar 1-2 times a day (Diagnosis: new-onset diabetes) 60 each 11 09/01/20 25 Active FreeStyle lancetsIndicat ions:New onset type 2 diabetes mellitus (HCC) 1 each by Other route if needed in the morning and at bedtime (to check BS). Use to test blood sugar (Diagnosis: new-onset diabetes) 60 each 09/01/20 25 026 Active Alcohol Swabs (Alcohol Pads) 70 % padsIndication s:New onset type 2 diabetes mellitus (HCC) Use to test blood sugar 1-2 times a day (Diagnosis: new-onset diabetes) 100 each 11 09/01/20 25 Active Blood Glucose Monitoring Suppl (FreeStyle [place] Lite) w/Device kitIndications :New onset type 2 diabetes mellitus (HCC) Use to test blood sugar 1-2 times a day (Diagnosis: new-onset diabetes) 1 kit 12/17/20 25 Active meloxicam (Mobic) 7.5 MG tablet Take 1 tablet (7.5 mg) by mouth Once per day for 20 days. 20 tablet 07/28/20 25 025 metFORMIN, OSM, (Fortamet) 500 MG 24 hr tabletIndicati ons:Type 2 Diabetes Mellitus Take 2 tablets (1,000 mg) by mouth Once per day. Start with 1 tablet (500mg) daily for 2 weeks, then increase to 2 tablets. 180 tablet 07/29/20 25 025 Discontinued Alcohol Swabs (Alcohol Pads) 70 % padsIndication s:New onset type 2 diabetes mellitus (HCC) Use to test blood sugar 1-2 times a day (Diagnosis: new-onset diabetes) 100 each 07/29/20 025 Discontinued(Re order (will not trigger notification to Pharmacy)) Blood Glucose Monitoring Suppl (FreeStyle [place] Lite) w/Device kitIndications :New onset type 2 diabetes mellitus (HCC) Use to test blood sugar 1-2 times a day (Diagnosis: new-onset diabetes) 1 kit 07/29/20 025 Discontinued(Re order (will not trigger notification to Pharmacy)) FreeStyle lancetsIndicat ions:New onset type 2 diabetes mellitus (HCC) 1 each by Other route if needed in the morning and at bedtime (to check BS). Use to test blood sugar (Diagnosis: new-onset diabetes) 60 each 07/29/20 025 Discontinued(Re order (will not trigger notification to Pharmacy)) glucose blood (FREESTYLE LITE) test stripIndicatio ns:New onset type 2 diabetes mellitus (HCC) Use to test blood sugar 1-2 times a day (Diagnosis: new-onset diabetes) 60 each 07/29/20 25 025 Discontinued(Re order (will not trigger notification to Pharmacy)) metFORMIN XR (Glucophage-XR ) 500 MG 24 hr tablet Take 2 tablets (1,000 mg) by mouth with evening meal. Take 2 tablets (1,000 mg) by mouth Once per day. Start with 1 tablet (500mg) daily for 2 weeks, then increase to 2 tablets. 180 tablet 08/09/20 25 025 Discontinued Active Problems Problem Noted Date Diagnosed Date Right leg pain 07/14/2024 Encounters Date Type Department Care Team Description 09/01/2025 2:15 PM EST Office Visit [address] [address] Yordy Menjivar FNP Encounter for medical examination to establish care (Primary Dx); New onset type 2 diabetes mellitus (HCC); Encounter for weight management; Sorethroat; Strep pharyngitis; Dietary counseling; Exercise counseling; Class 2 severe obesity due to excess calories with serious comorbidity and body mass index (BMI) of 39.0 to 39.9 in adult 09/01/2025 Travel 08/31/[address] [address] Yordy Menjivar FNP Chart Prep 08/24/2025 Patient Outreach [address] [address] Yordy Menjivar FNP Pre-visit Planning (SDOH Screening negative and Tobacco screening negative) 08/09/[address] [address] Mohan Power MD Prior Authorization 08/09/2025 Telephone [facility] [address] [place], [place] [phone] Mohan Power MD 07/29/2025 10:00 AM EST Office Visit [facility] [address] [address] Mohan Power MD New onset type 2 diabetes mellitus (HCC) (Primary Dx); Microscopic hematuria 07/29/2025 Travel 07/28/2025 3:00 PM EST Office Visit [facility] [address] [address] Álvaro Bragg MD Left knee pain, unspecified chronicity (Primary Dx); History of left knee surgery; Elevated blood pressure reading; Situational anxiety 07/28/2025 Results Follow-Up [facility] [address] [address] Mohan Power MD Basic Metabolic Panel 07/28/2025 Telephone [facility] [address] [address] Mohan Power MD 07/28/2025 Travel from Last 3 Months Social [...] Mass Index 39.58 09/01/2025 2:16 PM EST Plan of Treatment Upcoming Encounters Date Type Department Care Team (Late st Contact Info) Description 10/06/2025 3:15 PM EST Office Visit [facility] [address] [place], [place] [phone] Menjivar Yordy, DELIA [address] [place], [place] [phone] Health Maintenance Due Date Last Done Comments Depression Screening 1983 HIV Screening 1983 Lipid Panel 1983 Disability Screening 1983 Diabetes: Foot Exam 1993 Eye Exam 1993 Family Planning (PISQ) 1998 HPV Vaccines (1 - Male 3-dos e series) 1998 Hepatitis C Screening 2001 Diabetes: Urine Protein Screening 2002 Hepatitis B Vaccines (1 of 3 - 19+ 3-dose series) 2002 Pneumococcal Vaccine: Pediatrics (0 to 5 Years) and At-Risk Patients (6 to 49) Years (1 of 2 - PCV) 2002 COVID-19 Vaccine ( - 2024-2 6 season) 2025 02/19/2021, 01/20/2021 Influenza Vaccine (#1) 2025 07/30/2017 Diabetes: Hemoglobin A1C 10/29/2025 07/29/2025 SDOH Screening 08/24/2026 08/24/2025 Alcohol/Substance Use Screening 09/01/2026 09/01/2025 Tobacco Screening 09/01/2026 09/01/2025 DTaP/Tdap/Td Vaccines (2 - T d or [...] on patient's age to complete this topic Goals Goal Patient Goal Type Associated Problems Recent Progress Patient-Stated? Author Help patients manage their type 2 diabetes Care Plan Help patients manage their type 2 diabetes Mohan Wright MD Patient has chronic kidney disease Care Plan Patient has chronic kidney disease No Mohan Power MD Patient has chronic kidney disease Care Plan Patient has chronic kidney disease No Mohan Power MD Patient has chronic kidney disease Care Plan Patient has chronic kidney disease No Yordy Menjivar FNP Procedures Procedure Name Priority Date/Time Associated Diagnosis [...] New onset type 2 diabetes mellitus (HCC) POCT GLYCATED HEMOGLOBIN, TOTAL Routine 07/29/2025 10:32 AM EST New onset type 2 diabetes mellitus (HCC) POCT GLUCOSE Routine 07/29/2025 10:32 AM EST New onset type 2 diabetes mellitus (HCC) POCT URINALYSIS DIPSTICK Routine 07/29/2025 10:30 AM EST New onset type 2 diabetes mellitus (HCC) XR KNEE 3 VIEWS LEFT Routine 07/28/2025 3:58 PM EST Left knee pain, unspecified chronicity History of left knee surgery BASIC METABOLIC PANEL Routine 07/28/2025 3:32 PM EST Left knee pain, unspecified chronicity History of left knee surgery Elevated blood pressure reading from Last 3 Months Results * POCT Rapid Influenza B HARRISON ID NOW (09/01/2025 2:58 PM EST) Pathologist [facility] Influenza B Negative Negative, Indeterminate [facility] QC Media Lot # [id number] [facility] Lot# Expiration Date [facility] Swab 09/01/2025 2:58 PM EST Yordy [facility] POINT OF CARE TEST ENTER/EDIT ORDERABLES Final Result Performing Organization Address [facility]/ZIP Co de Phone Number [facility] [address] [place] [phone] * POCT Rapid Influenza A HARRISON ID NOW (09/01/2025 2:56 PM EST) [facility] Influenza A Negative Negative, Indeterminate [facility] QC Media Lot # [id number] [facility] Lot# Expiration Date [facility] Swab 09/01/2025 2:56 PM EST Yordy [facility] POINT OF CARE TEST ENTER/EDIT ORDERABLES Final Result Performing Organization Address City/[facility]/ZIP Co de Phone Number [facility] [address] [place] [phone] * (ABNORMAL) POCT Rapid Strep A HARRISON ID NOW (09/01/2025 2:55 PM EST) [facility] Rapid Strep A Screen Positive( A) Negative, None Detected QC Media Lot # [id number] Lot# Expiration Date 026,026 Swab 09/01/2025 2:55 PM EST [facility] POINT OF CARE TEST ENTER/EDIT ORDERABLES Final Result * POCT Rapid Covid-19 BinaxNOW (09/01/2025 2:54 PM EST) Pathologist [facility] Rapid COVID Ag Negative QC Media Lot # [id number] Lot# Expiration Date 8,026 Swab 09/01/2025 2:54 PM EST [facility] POINT OF CARE TEST ENTER/EDIT ORDERABLES Final Result * (ABNORMAL) POCT Glucose (09/01/2025 2:16 PM EST) Only the most recent of2 resultswithin the time period is included. [facility] Glucose Blood, POC 212(A) 60 - 200 mg/dL QC Media Lot # [id number] Lot# Expiration Date Blood Capillary blood specimen / Unknown 09/01/2025 2:16 PM EST Yordy [facility] POINT OF CARE TEST ENTER/EDIT ORDERABLES Final Result * (ABNORMAL) POCT A1c (07/29/2025 10:32 AM EST) [facility] Hemoglobin A1C 12.6(A) 4.0 - 5.7 % Blood 07/29/2025 10:3 2 AM EST Mohan Power MD POINT OF CARE TEST ENTER/EDIT OR DERABLES Final Result * (ABNORMAL) POCT urinalysis dipstick manually resulted (CPT 34227) (07/29/2025 10:30 AM EST) Pathologist [facility] Color, UA Yellow Comment:Dark Clarity, UA Clear Glucose, UA 4+ >500 Comment:1000 Bilirubin, UA Few 15 Ketones, UA Positive Comment:15mg Spec Grav, UA 1.025 Blood, UA Positive(A) Negative, None Detected Comment:Small pH, UA 5.5 Protein, UA 1+ 70+ Comment:30mg Urobilinogen, UA 1.0 Leukocytes, UA Negative Negative, Rare, Trace Nitrite, UA Negative Negative, None Detected Appearance, UA OK Urine (Urine, Random) 07/29/2025 10:30 AM EST Mohan Power MD POINT OF CARE TEST ENTER/EDIT OR DERABLES Final Result * XR Knee 3 Views Left (07/28/2025 3:58 PM EST) Anatomical Region Laterality Modality Lower Extremities, Knee Left Radiogra phic Imaging 07/28/2025 3:58 PM EST Narrative 07/28/2025 5:16 PM EST [address] [address] XRay Report Signed Patient: Yasmany Galeana MR#: [id number] : 1985 Acct:[id number] Age/Sex: 39 / M ADM Date: 07/28/25 Loc: [facility] Attending Dr: Álvaro Bragg MD Ordering Physician: Álvaro Bragg MD Date of Service: 07/28/25 Procedure(s): XR knee LT 3V Accession Number(s): [id number] cc: Álvaro Bragg MD Reason for Exam: [...] by: Charisma Vargas MD 07/28/2025 05:13 PM [facility] Dictated By: Chairsma Vargas MD Signed By: <Electronically signed by Charisma Vargas MD in OV> 07/28/25 1713 DD/ 1558 TD/TT: 07/28/25 1606 Food Scientist: JENNIFER Procedure Note Donotuseinterpreter, Image - 07/28/[address] [address] XRay Report Signed Patient: Yasmany Galeana MMR#: [id number] : 1985Acct:[id number] Age/Sex: 39 / MADM Date: 07/28/25 Loc: [facility] Attending Dr: Álvaro Bragg MD Ordering Physician: Álvaro Bragg MD Date of Service: 07/28/25 Procedure(s): XR knee LT 3V Accession Number(s): [id number] cc: Álvaro Bragg MD Reason for Exam: [...] Charisma Vargas MD 07/28/2025 05:13 PM EST RP Dictated By: Charisma Vargas MD Signed By: <Electronically signed by Charisma Vargas MD in OV> 07/28/25 1713 DD/ 1558 TD/TT: 07/28/25 1606 Food Scientist: JENNIFER us Álvaro Bragg MD IMG XR PROCEDURES Final Result * (ABNORMAL) Basic Metabolic Panel (07/28/2025 3:32 PM EST) Sodium 135 135 - 145 mmol/L [facility] Potassium 4.0 3.3 - 5.1 mmol/L [facility] Chloride 100 96 - 108 mmol/L [facility] Carbon Dioxide 25 22 - 29 mmol/L [facility] Anion Gap 14 12 - 20 [facility] Urea Nitrogen (BUN) 13 9 - 16 mg/dL [facility] Creatinine, Serum 1.00 0.5 - 1.4 mg/dL [facility] Estimated Glomerular Filt Rate >60 [facility] Comment:Chronic Kidney Disea se: Estimated GFR < 60 mL/min/1.07a2Troshf Kidney Disease: Estimated GFR < 15 mL/min/1.73m2 Glucose 435(HH) 60 - 115 mg/dL [facility] Comment:Critical value for t est(s): GLUR Results called to bradford back by: DR POWER Person calling: JAMES Date: [id number] Calcium 9.3 8.4 - 10.2 mg/dL [facility] Blood Venous blood specimen / Unknown 07/28/2025 3:32 PM EST 07/28/2025 5:55 PM EST us Álvaro Bragg MD LAB BLOOD ORDERABLES Final Resul t [facility] [address] [place] [phone] from Last 3 Months Additional Health Concerns Active Problems Noted Date Diagnosed Date Help patients manage their type 2 diabetes 07/29 Patient has chronic kidney disease 07/29/2025 Patient has chronic kidney disease 08/09/2025 Patient has chronic kidney disease 09/01/2025 Insurance [facility] C3 Care Teams Office Assistance Relationship Specialty Start Date End Date Yordy Menjivar FNP [address] [place] [phone] PCP - General Family Medicine 09/01/25
--- OUTSIDE RECORDS SUMMARY | 2025-09-02 09:12 | XMS_ITS | Encounter Summary ---
Author Organization [employer] Address [address] [place] [address] Care Team Providers Care Correspondence School Instructor Name Role Phone Yordy Menjivar DELIA Primary Care Provider [phone] Encounter Details Date Type Department Care Team (Latest Contact Info) Description 09/01/2025 Travel Social History Tobacco Use Types Packs/Day Years Used Date Smoking Tobacco: Never Passive Smoke Exposure: Never Smokeless Tobacco: Never Alcohol Use Standard Drinks/Week Comments Yes 1 (1 standard drink = 0.6 oz pur e alcohol) Housing Stability Answer Date Recorded What is your housing situation today? I have janellefaye johnson 08/24/[address] you [...] Description 10/06/2025 3:15 PM EST Office Visit [facility] [address] [place] [address] Yordy Menjivar FNP [address] [place] [address] documented as of this encounter Goals Goal Patient Goal Type Associated Problems Recent Progress Patient-Stated? Author Help patients manage their type 2 diabetes Care Plan Help patients manage their type 2 diabetes No Mohan Power MD Patient has chronic kidney disease Care Plan Patient has chronic kidney disease Mohan Wright MD Patient has chronic kidney disease Care Plan Patient has chronic kidney disease Mohan Wright MD Patient has chronic kidney disease Care Plan Patient has chronic kidney disease No Yordy Menjivar FNP documented as of this encounter Visit Diagnoses Not on filedocumented in this encounter Additional Health Concerns Active Problems Noted Date Diagnosed Date Help patients manage their type 2 diabetes 07/29 Patient has chronic kidney disease 07/29/2025 Patient has chronic kidney disease 08/09/2025 Patient has chronic kidney disease 09/01/2025 documented as of this encounter Care Teams Correspondence School Instructor Relationship Specialty Start Date End Date Yordy Menjivar FNP [address] [place] [address] PCP - General Family Medicine 09/01/25 documented as of this encounter
--- OUTSIDE RECORDS SUMMARY | 2025-09-02 09:12 | XMS_ITS | Encounter Summary ---
Author Organization [employer] Address [address] [place] [address] [address] [place] [address] Care Team Providers Care Heart Nurse Name Role Phone Unavailable Primary Care Provider Unavailabl e Reason for Visit * Reason Onset Date Comments Chart Prep 08/31/2025 Encounter Details Date Type Department Care Team ([facility] st Contact Info) Description 08/31/2025 Telephone [facility] [address] [place] [address] Yordy Menjivar FNP [address] [place] [address] Chart Prep Social History Tobacco Use Types Packs/Day Years [...] PM EDT documented as of this encounter Miscellaneous Notes * Telephone Encounter - Ru Valdez [place] - 08/31/2025 4:51 PM EST Chart Prep Labs: not done Images: done Referrals: not applicable Vaccines due: Covid, Flu, Hep B, and HPV Screenings: eye exam and foot examAlcohol/Substance Use Screening Overdue care gaps: SBIRT, PHQ-9, FLOWER-7, Disability screen, and Tobacco documented in this encounter Plan of Treatment Upcoming Encounters Date Type Department Care Team (Late st Contact Info) Description 10/06/2025 3:15 PM EST Office Visit [facility] [address] [place] [address] Yordy Menjivar FNP [address] [place] [address] documented as of this encounter Goals Goal [...] chronic kidney disease No Mohan Power MD documented as of this encounter Visit Diagnoses Not on filedocumented in this encounter Additional Health Concerns Active Problems Noted Date Diagnosed Date Help patients manage their type 2 diabetes 07/29 Patient has chronic kidney disease 07/29/2025 Patient has chronic kidney disease 08/09/2025 documented as of this encounter
--- OUTSIDE RECORDS SUMMARY | 2025-09-02 09:12 | XMS_ITS | Encounter Summary ---
Author Organization [employer] Address [address] [place] [address] [address] [place] [address] Care Team Providers Care Message Clerk Name Role Phone Yordy Menjivar Primary Care Provider [phone] Encounter Details Date Type Department Care Team (Late st Contact Info) Description 07/28/2025 Results Follow-Up [facility] [address] [place] [id number] Mohan Power MD [address] [place] [phone] Basic Metabolic Panel Social History Tobacco Use Types Packs/Day Years [...] Description 10/06/2025 3:15 PM EST Office Visit [facility] [address] [place] [phone] Yordy Menjivar FNP [address] [place] [phone] documented as of this encounter Visit Diagnoses Not on filedocumented in this encounter Care Teams Message Clerk Relationship Specialty Start Date End Date Yordy Menjivar FNP [address] [place] [id number] PCP - General Family Medicine 09/01/25 documented as of this encounter
[2025-09-02 11:10] LABS: MANUAL DIFF FLAG NO
[2025-09-02 11:17] LABS: Appearance Urine Turbid; Glucose Urine UA 500 mg/dL (Negative); PH 5.5 (5.0-9.0); Specific Gravity - Urine >= 1.030 (1.005-1.025)
[2025-09-02 11:28] LABS: Hematocrit 43.7 % (42.0-52.0); Hemoglobin 14.5 g/dl (14.0-18.0); Imm Gran Abs Auto 0.05 X10*3/uL (0.00-0.03); Imm Gran Pct Auto 0.4 % (0.0-0.4); Lymphocytes Absolute Auto 2.7 X10*3/uL (1.2-4.9); Mean Corpuscular HGB Conc 33.2 g/dl (31.0-36.0); Mean Corpuscular Hemoglobin 30.0 pg (27.0-33.0); Mean Corpuscular Volume 90.3 fL (80.0-98.0); NRBC Abs Auto 0.000 X10*3/uL (0.0-0.012); NRBC Pct Auto 0.0 /100WBC (0.0-0.2); Platelet Count 302 X10*3/uL (160-400); Red Blood Count 4.84 X10*6/uL (4.60-5.80); White Blood Count 12.4 X10*3/uL (4.8-10.8)
[2025-09-02 12:23] LABS: Alanine Aminotransferase 28 U/L (0-40); Albumin Level 4.4 g/dL (3.5-5.0); Alkaline Phosphatase 69 U/L (39-117); Anion Gap 11 (12-20); Aspartate Amino Transferase 21 U/L (5-37); Blood Urea Nitrogen 11 mg/dL (9-16); Calcium 8.9 mg/dL (8.4-10.2); Carbon Dioxide 28 mmol/L (22-29); Chloride 102 mmol/L (96-108); Cholesterol 226 mg/dL (<200); Estimated Glomerular Filt Rate > 60; HDL Cholesterol 35 mg/dL (>40); Potassium 3.9 mmol/L (3.3-5.1); Sodium 137 mmol/L (135-145); Total Protein 7.4 g/dL (6.5-8.0); Triglycerides 128 mg/dL (<150)
[2025-09-02 12:27] LABS: Microalbum/Creatinine Ratio Ur 6.6 ug/mg cr (<30)
== END 2025-09-02 08:43 ==
LOC: HO.HHCL 08:42
PROVIDERS: Family Medicine; PCP Internal Medicine Geriatric Medicine; Referring Provider Internal Medicine Geriatric Medicine
DX: Z00.00 Encounter for general adult medical examination without abnormal findings (principal); E11.9 Type 2 diabetes mellitus without complications; R31.29 Other microscopic hematuria
CPT/HCPCS: 36415; 80053; 80061; 81001; 82043; 82570; 85025